=== PATIENT | male | born 1965 | race Caucasian/White ===

== ENCOUNTER → 2020-04-18 09:52 | Outpatient (CLI) | payer OTHER, SELFPAY ==
[2020-04-18 12:43] LABS: Coronavirus 19 IgG Antibody Negative (Negative); Coronavirus 19 IgM Antibody Negative (Negative)
== END ==
PROVIDERS: Visit Provider Internal Medicine Gastroenterology
DX: Z01.812 Encounter for preprocedural laboratory examination (principal); Z11.52 Encounter for screening for COVID-19; Z12.11 Encounter for screening for malignant neoplasm of colon
CPT/HCPCS: 36415; 86328

== ENCOUNTER 2020-04-20 11:42 | Day surgery (SDC) | payer OTHER, SELFPAY ==
[2020-04-20] VITALS (7 sets, daily range): BP systolic 137–167; BP diastolic 70–97; PULSE 54–70; RESP 16–18; TEMP 36.4–36.5; O2SAT 96–100; BMI 43.5
[2020-04-20 12:22] LABS: POC Glucose,Bedside 167 (70-110)
--- NOTE | 2020-04-20 13:05 | HMH.PROC ---
[facility] Procedure Note Procedure Note:: Colonoscopy Procedure Report: Colonoscopy with cold snare polypectomy Endoscopist: Jesus Ordonez II, MD Referring physician: SAMM Ng Date of Procedure: April 20, 2020 Equipment: Olympus 180 variable stiffness pediatric colonoscope Sedation: MAC sedation Indication: Mr. Bucio is a 54-year-old gentleman who is here for diagnostic colonoscopy secondary to a change in bowel habits. He does state that over the last couple of months he has had smaller caliber stools and a feeling of incomplete bowel evacuation. He did note some lower abdominal pain and discomfort intermittently. He reports no rectal bleeding or family history of colon cancer. He has lost 10 pounds over the last several months and states that this was intentional. His last colonoscopy was 5 to 6 years ago here and he believes that polyps were removed. Procedure: Prior to the procedure, a history and physical exam was performed, and patient's medications and allergies were reviewed. The risks, benefits and alternatives of the sedation and procedure were discussed with the patient. All questions were answered and informed consent was obtained. The patient was brought to the procedure room. Patient identification and proposed procedure were verified by the physician and the nurse. The patient was placed in a left lateral decubitus position and the scope was passed under direct vision. Throughout the procedure, the patient's blood pressure, pulse, and oxygen saturations were monitored continuously. The colonoscopy was accomplished without difficulty. The patient tolerated the procedure well. Findings: On digital rectal examination there was normal rectal tone. There were no external hemorrhoids. The prostate was 2+, soft, smooth and symmetric without nodules. The colonoscope was introduced through the anal canal to the rectum and advanced to the cecum. The ileocecal valve and appendiceal orifice were identified. The scope was advanced a short distance into the ileum which appeared grossly normal. The scope was then withdrawn into the colon. There were 3 colon polyps (ascending x1 (4 mm), descending x1 (5 mm) and rectum x1 (3 mm)) that were removed via cold snare polypectomy. There were scattered diverticuli throughout the descending and sigmoid colon (LEFT colon). The rectum itself was normal. Upon retroflexion within the rectum there were grade 1-2 internal hemorrhoids. The preparation was excellent throughout with Hart[place] Preparation Score of 9. The cecal time was 12 minutes. Impression: 1. Diminutive colonic polyps x3 2. Left-sided diverticulosis with evidence of acute/chronic sigmoid diverticulitis 3. Grade 1-2 internal hemorrhoids Plan: I will discuss the findings with patient and family. I will recommend dietary measures and bulk fiber supplementation (Konsyl daily). I will follow up the polyp histology and recommend repeat screening/surveillance colonoscopy again in 5 years based upon the pathology.
--- NOTE | 2020-04-20 14:22 | P.PN_ITS ---
[facility] Anesthesia Checklist - Structural Data Admitted From: Home Planned Operative Procedure/s: colonoscopy Consent for Planned Operative Procedure(s) Verified: Yes Verified Documents: Surgical Consent - Anesthesia Plan Anesthesia Risk discussed: Yes Anesthesia Plan: Verified ASA Class: II Anesthesia Type: General - Preoperative Comments Pre-Operative Comments: non [facility] History I have reviewed the patient's past medical history: Yes Medical History: Reports:: Diabetes Mellitus Type 2, Hyperlipidemia, Hypertension Denies:: Cancer, Diabetes Mellitus Type 1, MRSA, Seizures *Have you ever received a pneumonia vaccine?: No *Have you received a flu vaccine this season?: Yes Anesthesia experience/problems:: non Laterality Cases: Left: Arthroscopy Knee, Partial Knee Replacement Amputation: No Fractures: Yes - *Social History Smoking Status: Heavy tobacco smoker Tobacco Type: smokeless tobacco # Packs/Day (cigarettes): 2 Alcohol Intake: never Substance Use Type: denies use *Occupational Status:: employed Household Members: spouse *Travel in the last 8 weeks: None Family Hx:: No significant family history
== END 2020-04-20 13:50 | disposition home or self-care (01) ==
LOC: OUTP 11:45
PROVIDERS: PCP Nurse Practitioner Family; Visit Provider Internal Medicine Gastroenterology
PROC: 0DJD8ZZ Inspection of Lower Intestinal Tract, Via Natural or Artificial Opening Endoscopic (ICD-10-PCS; CPT 45378; principal; 2020-04-20 12:30)
DX: K63.5 Polyp of colon (principal); K57.30 Diverticulosis of large intestine without perforation or abscess without bleeding; K57.32 Diverticulitis of large intestine without perforation or abscess without bleeding; K64.0 First degree hemorrhoids; R63.4 Abnormal weight loss; E11.9 Type 2 diabetes mellitus without complications; I10 Essential (primary) hypertension; E78.5 Hyperlipidemia, unspecified; Z72.0 Tobacco use; Z79.82 Long term (current) use of aspirin; Z79.899 Other long term (current) drug therapy
CPT/HCPCS: 45385; 82962

== ENCOUNTER → 2021-05-05 09:24 | Outpatient (CLI) | payer OTHER, SELFPAY | PROVIDERS: PCP Nurse Practitioner Family; Visit Provider Nurse Practitioner | DX: U07.1 COVID-19 (principal) | CPT/HCPCS: C9803; U0003; U0005 ==

== ENCOUNTER 2021-05-05 09:35 | Emergency (ER) | payer OTHER, SELFPAY ==
[2021-05-05 10:20] VITALS: BP 166/86; PULSE 70; RESP 18; TEMP 37.4; O2SAT 92; BMI 44.9
--- NOTE | 2021-05-05 10:35 | XR_ITS ---
FINAL REPORT CLINICAL HISTORY: COUGH AND CONGESTION states he was dx with walking pneumonia a few weeks ago still not getting any better. no prior cxr at [facility]. FINDINGS: TWO VIEWS OF THE CHEST There is mild cardiomegaly. The mediastinum is unremarkable. There is patchy airspace opacity in both lungs. There is atelectasis at the left base. Findings are all consistent with acute pneumonia. There is no pneumothorax. IMPRESSION: Acute pneumonia. Recommend continued follow-up. Reviewed, Interpreted and Dictated by Bimal Davis MD Transcribed by Susi Nguyen Authenticated by Bimal Davis MD on 05/05/2021 11:35:09 AM [facility]
--- NOTE | 2021-05-05 10:57 | HMH.EDUTC ---
[facility] [place] Clinical Impression: Pneumonia Qualifiers: Pneumonia type: due to unspecified organism Laterality: unspecified laterality Lung location: unspecified part of lung Qualified Code(s): J18.9 - Pneumonia, unspecified organism Disposition: Home, Self-Care Condition on Discharge: Good Instructions: Pneumonia-Adult, Azithromycin, Cefdinir Additional Instructions: ? Start azithromycin today. and start Cefdinir tomorrow Be sure to complete entire prescription even if feeling better ? Monitor temp. Tylenol every 4 hours as needed and / or ibuprofen every 6 hours as needed ( As long as your primary care physician has told you that it ok to take both. For fever/aches/pains ER if no less than 101 despite Tylenol or Motrin ? Humidifier/vaporizer or hot steamy shower ? Inhaler every 4-6 hours as needed like we discussed. If unsure how to use it, ask pharmacist to demonstrate how. Should help open airways and improve cough, wheezing, and shortness of breath ? Mucinex Over the counter during the day for your cough and cough suppressant only at night. Be sure to drink lots of water. *Tessalon Perles will not cause drowsiness but use at bedtime to help stop cough so that you may get some rest. Follow up IMMEDIATELY for new or worsening of symptoms OR no noticeable improvement over the next 48-72 hours. 911 immediately for any life threatening symptoms such as chest pain or difficulty breathing Prescriptions: Benzonatate [Benzonatate 100mg cap] 100 mg PO Q8HP PRN #15 cap PRN Reason: Cough Transmission Status: Received by [facility] Cefdinir [Omnicef 300mg Capsule] 300 mg PO BID #20 cap Transmission Status: Received by [facility] Azithromycin [Z-Corbin 250mg Tab] 250 mg PO DIRECTED #6 tab Transmission Status: Received by [facility] Referrals: Candelaria Wolff [Primary Care Provider] - As needed Time of Disposition: 12:16 Medical Decision Making - Saúl Inquiry Pt receiving controlled substance: No Saúl was queried for this patient: No Vital Signs: 05/05/21 10:20 05/05/21 12:14 Temperature 99.3 F 99.3 F Temperature Source Oral Pulse Rate 70 Pulse Rate [Right Brachial] 70 Respiratory Rate 18 18 Blood Pressure 166/86 H Blood Pressure [Right Arm] 166/86 H Blood Pressure Mean [Right Arm] 112 Blood Pressure Source [Right Arm] Automatic Cuff Blood Pressure Position [Right Arm] Sitting 02 Sat by Pulse Oximetry 92 L Oxygen Delivery Method Room Air Orders (Tests/Meds): ED MEDICATIONS Discontinued Medications Generic Name Dose Route Start Last Admin Trade Name Johnathan PRN Reason Stop Dose Admin Albuterol/Ipratropium 3 ml 05/05/21 11:47 05/05/21 11:54 Ipratropium/Albuterol 3 Ml Neb IH 05/05/21 11:48 3 ml ONCE ONE Administration Ceftriaxone Sodium 1 gm 05/05/21 11:56 05/05/21 12:10 Ceftriaxone 1gm Vial IM 05/05/21 11:57 1 gm ONCE ONE Administration Lidocaine HCl 0 ml 05/05/21 11:56 05/05/21 12:10 Lidocaine 1% 5ml Pf Vial IM 05/05/21 11:57 2 ml ONCE ONE Administration Methylprednisolone Sodium Succinate 125 mg 05/05/21 11:56 05/05/21 12:10 Methylprednisolone Sod Succ 125mg Vial IM 05/05/21 11:57 125 mg ONCE ONE Administration - Radiology Data #1 Image(s): Chest Image Reviewed: Yes I reviewed the patient's radiology image [place] [facility] [place] - General Stated complaint: soa, cough, Time Seen by Provider: 05/05/21 10:57 Mode of Arrival: Ambulatory Source of Information: Patient Limitations: No Limitations Description of Symptoms (Recalled from Triage Doc. by RN): PATIENT C/O SOA AND COUGH X 1 MONTH. HE REPORTS HE WAS DIAGNOSED WITH WALKING PNEUMONIA BY PCP WITHIN THE LAST MONTH AND WAS GIVEN ANTIBIOTICS AND AN INHALER, BUT STATES HE DOES NOT FEEL LIKE HE IS GETTING BETTER. HIS CURRENTLY HAS COVID AND HE WAS TESTED THIS AM [facility] Symptoms (Recalled from RN notes): No Resp Symptom
[2021-05-05 12:14] VITALS: BP 166/86; PULSE 70; RESP 18; TEMP 37.4; O2SAT 95
== END 2021-05-05 12:24 | disposition home or self-care (01) ==
PROVIDERS: Emergency Provider Nurse Practitioner; PCP Nurse Practitioner Family
DX: U07.1 COVID-19 (principal); J12.82 Pneumonia due to coronavirus disease 2019; E11.9 Type 2 diabetes mellitus without complications; I10 Essential (primary) hypertension; E78.5 Hyperlipidemia, unspecified; F17.290 Nicotine dependence, other tobacco product, uncomplicated
CPT/HCPCS: 71046; 96372; 99202; G0463; J0696

== ENCOUNTER 2021-05-07 15:10 | Observation (INO) | payer OTHER, SELFPAY ==
[2021-05-07] VITALS (18 sets, daily range): BP systolic 122–163; BP diastolic 74–92; PULSE 62–81; RESP 18–30; TEMP 37.5–39.5; O2SAT 89–97; BMI 44.9; BMI 40.8
--- NOTE | 2021-05-07 15:20 | ECG_ITS ---
APPROVED REPORT Exam: Resting ECG HR:80 bpm ECG Measurements Heart Rate 80 AXES NJ 193 P -11 QRSd 89 QRS -15 QT 339 T -6 QTc 375 Conclusion SINUS RHYTHM MODERATE VOLTAGE CRITERIA FOR LVH, CONSIDER NORMAL VARIANT [MEETS CRITERIA IN ONE OF: R(aVL), S(V1), R(V5), R(V5/V6)+S(V1)] BORDERLINE ECG UNCONFIRMED REPORT Electronically signed by : Roger Evangelista MD 05/10/2021 17:31:00
--- NOTE | 2021-05-07 15:49 | XR_ITS ---
FINAL REPORT CLINICAL HISTORY: pt extremely soa, covid COMPARISON: May 05, 2021 FINDINGS: The heart size is normal. The mediastinum is normal. The lungs are underinflated. There are patchy bibasilar airspace infiltrates that are improved on the right and worse on the left. There are no pleural effusions. There is no pneumothorax. There is no osseous abnormality. IMPRESSION: Acute bibasilar pneumonia improving on the right and worsening on the left. Reviewed, Interpreted and Dictated by Bimal Davis MD Transcribed by Burak Cote Authenticated by Bimal Davis MD on 05/07/2021 04:26:20 PM [facility]
[2021-05-07 16:23] LABS: Chloride 97 mmol/L (98-107); Potassium 3.1 mmoL/L (3.5-5.1); Sodium 134 mmol/L (136-145)
[2021-05-07 16:26] LABS: Alanine Aminotransferase 39 U/L (12-78); Albumin/Globulin Ratio 1.2 (1.1-1.8); Alkaline Phosphatase 71 U/L (38-126); Anion Gap 9.1 mEq/L (5-15); Aspartate Amino Transferase 56 U/L (17-59); Bilirubin,Total 0.7 mg/dl (0.2-1.3); Blood Urea Nitrogen 12 mg/dl (9-20); Carbon Dioxide 31 mmol/L (22.0-30.0); Creatinine Clearance Estimated 157 mL/min (50-200); Estimated Glomerular Filt Rate 140 ml/min (>60); GFR (African American) 169 ML/MIN (>60); Globulin 3.3 g/dL (1.3-3.2); Glucose 171 mg/dl (74-100); Total Protein,Serum 7.3 g/dl (6.3-8.2)
[2021-05-07 16:42] LABS: Basophils # 0.1 K/mm3 (0-0.2); Basophils % 1.3 % (0.1-2.0); Hematocrit 46.2 % (42.0-52.0); Hemoglobin 15.2 g/dL (14.1-18.0); Lymphocytes # 0.6 K/mm3 (0.7-4.5); Lymphocytes % 10.1 % (10-50); Mean Corpuscular Hemoglobin 29.3 pg (27.0-31.2); Mean Corpuscular Volume 88.9 fl (80-94); Mean Platelet Volume 7.9 fl (7.4-10.4); Monocytes # 0.3 K/mm3 (0.1-1.0); Monocytes % 5.4 % (1.7-9.3); Neutrophils # 5.1 K/mm3 (1.8-7.8); Neutrophils % 83.1 % (37.0-80.0); Platelet Count 196 K/mm3 (142-424); Red Cell Distribution Width 13.7 % (11.5-17.5); White Blood Count 6.1 K/mm3 (4.8-10.8)
--- NOTE | 2021-05-07 17:00 | PC.NURSE ---
pt updated on plan of care
--- NOTE | 2021-05-07 17:27 | PC.NURSE ---
Patient ambulatory to restroom
--- NOTE | 2021-05-07 17:36 | PC.NURSE ---
Patient hooked back to monitor from restroom
--- NOTE | 2021-05-07 18:00 | PC.NURSE ---
pt updated on plan of care
[2021-05-07 18:07] LABS: Lactate Dehydrogenase 257 U/L (313-618)
[2021-05-07 18:11] LABS: C-Reactive Protein 42.9 mg/L (0-4)
[2021-05-07 18:13] LABS: D-Dimer 0.58 ug/mL (0.0-0.5)
[2021-05-07 18:29] LABS: Influenza A, PCR Not Detected (NotDetected); Influenza B, PCR Not Detected (NotDetected)
--- NOTE | 2021-05-07 18:32 | HMH.EDGENADL ---
ED Disposition Clinical Impression: Acute respiratory failure with hypoxia, Pneumonia due to COVID-19 virus Disposition: Admitted As Inpatient Condition on Discharge: Serious Referrals: Candelaria Wolff [Primary Care Provider] - - Critical Care Critical Care Time: Yes Attestation: On 05/07/21, the high probability of a clinically significant, sudden or life threatening deterioration of the following system(s) required my full and direct attention, intervention and personal management. The time I documented below is in addition to time spent performing reported procedures but includes the following listed in this critical care notation. Total Critical Care Time: 30 Vital system(s) involved:: Respiratory Failure My critical care processes included: Assessment & monitoring of V/S, Initial and Re-exams, Data Review/Interpretation, Coordinating Care, Medication Orders and management, Documentation Medical Decision Making - Saúl Inquiry Pt receiving controlled substance: No Vital Signs: 05/07/21 15:11 05/07/21 17:38 05/07/21 18:08 Temperature 103.1 F H 99.5 F Temperature Source Oral Oral Pulse Rate 69 Pulse Rate [Radial] 67 Respiratory Rate 30 H Blood Pressure 146/86 H Blood Pressure [Right Arm] 156/89 H Blood Pressure Mean [Right Arm] 111 Blood Pressure Position [Right Arm] Sitting 02 Sat by Pulse Oximetry 89 L 94 L Oxygen Delivery Method Room Air Nasal Cannula Oxygen Flow Rate (LPM) 2 - Lab Data Lab Results 05/07/21 16:00: WBC 6.1, RBC 5.20, Hgb 15.2, Hct 46.2, MCV 88.9, MCH 29.3, MCHC 33.0, RDW 13.7, Plt Count 196, MPV 7.9, Neut % (Auto) 83.1 H, Lymph % (Auto) 10.1, [place] % (Auto) 5.4, Eos % (Auto) 0.0 L, Baso % (Auto) 1.3, Neut # (Auto) 5.1, Lymph # (Auto) 0.6 L, [place] # (Auto) 0.3, Eos # (Auto) 0.0, Baso # (Auto) 0.1 05/07/21 16:00: Sodium 134 L, Potassium 3.1 L, Chloride 97 L, Carbon Dioxide 31 H, Anion Gap 9.1, BUN 12, Creatinine 0.60 L, Estimated Creat Clear 157, Estimated GFR 140, Est GFR ( Amer) 169, Glucose 171 H, Calcium 8.0 L, Total Bilirubin 0.7, AST 56, ALT 39, Alkaline Phosphatase 71, Total Protein 7.3, Albumin 4.0, Globulin 3.3 H, Albumin/Globulin Ratio 1.2 05/07/21 16:00: Lactate 1.0 05/07/21 16:00: Ferritin 103, Troponin I < 0.01, C-Reactive Protein 42.9 H 05/07/21 16:00: D-Dimer 0.58 H 05/07/21 16:00: Lactate Dehydrogenase 257 L 05/07/21 17:36: SARS-CoV-2 (PCR) Detected A, Influenza A Untype (PCR) Not detected, Influenza Type B (PCR) Not detected Result diagrams: 05/07/21 16:00 05/07/21 16:00 Orders (Tests/Meds): ED MEDICATIONS Generic Name Dose Route Start Last Admin Trade Name Jassiq PRN Reason Stop Dose Admin Dexamethasone Sodium Phosphate 6 mg 05/07/21 18:45 05/07/21 19:17 Dexamethasone 4mg/Ml 1ml Vial IV 06/06/21 18:44 6 mg DAILY TOBIN Administration Levofloxacin/Dextrose 750 mg in 150 mls @ 100 mls/hr 05/07/21 18:45 05/07/21 19:16 Levofloxacin 750mg/150ml Premix IV 05/21/21 18:44 100 mls/hr Q24H TOBIN Administration Discontinued Medications Generic Name Dose Route Start Last Admin Trade Name Jassiq PRN Reason Stop Dose Admin Acetaminophen 1,000 mg 05/07/21 15:50 05/07/21 16:05 Acetaminophen 500mg Tab PO 05/07/21 15:51 1,000 mg ONCE ONE Administration Iopamidol 70 ml 05/07/21 19:09 05/07/21 19:11 Iopamidol-370 (76%);100ml Bottle IV 05/07/21 19:10 70 ml ONCE ONE Administration Sodium Chloride 50 ml 05/07/21 19:09 05/07/21 19:10 0.9 % Sodium Chloride 50 Ml Vial IV 05/07/21 19:10 50 ml ONCE ONE Administration Sodium Chloride 10 ml 05/07/21 19:09 05/07/21 19:11 Sodium Chloride 0.9% 10ml Syr (Rad Only) IV 05/07/21 19:10 10 ml ONCE ONE Administration ORDERS Category Date Time Status Troponin I Q3H Lab 05/07/21 21:00 Ordered Troponin I Q3H Lab 05/08/21 00:00 Ordered Blood Culture Stat Micro 05/07/21 16:00 Received - Radiology Data #1 Image(s): Chest Image Reviewed: Ari
--- NOTE | 2021-05-07 18:42 | CT_ITS ---
PROCEDURE INFORMATION: Exam: CTA Chest With Contrast Exam date and time: 05/07/2021 6:42 PM Age: 55 years old Clinical indication: Shortness of breath; Additional info: Covid, SOA TECHNIQUE: Imaging protocol: Computed tomographic angiography of the chest with contrast. 3D rendering (Not supervised by radiologist): MIP and/or 3D reconstructed images were created by the technologist. Total images: 333 Radiation optimization: All CT scans at this facility use at least one of these dose optimization techniques: automated exposure control; mA and/or kV adjustment per patient size (includes targeted exams where dose is matched to clinical indication); or iterative reconstruction. Contrast material: ISOVUE 370; Contrast volume: 70 ml; Contrast route: INTRAVENOUS (IV); COMPARISON: CR XR CHEST PORTABLE 05/07/2021 3:58 PM FINDINGS: Pulmonary arteries: No large central pulmonary emboli were identified. Assessment of the small peripheral branches at multiple levels was nondiagnostic due to gross respiratory motion. Aorta: The aorta enhances appropriately without evidence of dissection or aneurysm. No mediastinal hematoma. Mild aortic ectasia/tortuosity. Thyroid: The visualized thyroid gland demonstrates no gross abnormality. Lungs: No acute tracheobronchial abnormalities. Multifocal bilateral alveolar opacities in all lobes suggestive of multifocal pneumonia. Commonly reported imaging features of COVID-19 pneumonia are present. Other processes such as influenza pneumonia and organizing pneumonia, as can be seen with drug toxicity and connective tissue disease, can cause a similar imaging pattern. No pulmonary mass lesions are identified. Pleural spaces: No pleural effusion. No pneumothorax. Heart: Mild cardiomegaly with right heart predominance. No pericardial effusion. Mediastinal space: The esophagus is largely contracted but demonstrates no gross abnormality. Lymph nodes: No supraclavicular or axillary adenopathy. No mediastinal or hilar adenopathy. Bones/joints: No acute osseous abnormalities are identified. Bridging ossification across multiple mid and lower thoracic spine segments suggesting diffuse idiopathic skeletal hyperostosis (DISH). Soft tissues: The soft tissues of the chest wall demonstrate no acute abnormality. Other findings: Visualized upper abdominal structures are unremarkable. IMPRESSION: 1. No large central pulmonary emboli were identified. Assessment of the small peripheral branches at multiple levels was nondiagnostic due to gross respiratory motion. 2. Multifocal bilateral alveolar opacities consistent with multifocal pneumonia. 3. Mild cardiomegaly with right heart predominance. 4. Additional nonemergent findings detailed above.
[2021-05-07 18:43] LABS: Ferritin 103 ng/ml (17.9-464)
--- NOTE | 2021-05-07 18:45 | PC.NURSE ---
RAD CALLED FOR CTA
[2021-05-07 18:55] LABS: Troponin I < 0.01 ng/ml (0.00-0.034)
--- NOTE | 2021-05-07 19:11 | PC.NURSE ---
Patient back from Radiology; hooked to monitor
--- NOTE | 2021-05-07 19:25 | PC.NURSE ---
PT AMBULATED UP TO BATHROOM O2 SATS DROPPPED TO 83% BUT QUICKLY RECOVERED BACK TO 90% O2 @ 3LPM REAPPLIED SATS BACK TO 96%
[2021-05-07 19:27] LABS: Coronavirus 19, PCR Detected (NotDetected)
--- NOTE | 2021-05-07 20:05 | PC.NURSE ---
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
--- NOTE | 2021-05-07 22:23 | PC.NURSE ---
patient up to floor via wheelchair @ this time
[2021-05-08] VITALS (7 sets, daily range): BP systolic 128–154; BP diastolic 62–84; PULSE 54–65; RESP 16–20; TEMP 36.4–36.7; O2SAT 92–96; BMI 40.7
[2021-05-08 00:32] LABS: POC Glucose,Bedside 220 (70-110)
--- NOTE | 2021-05-08 07:07 | HMH.HP ---
*Admission Date: 05/07/21 *Chief complaint: Covid, SOA *History of present illness: Mr. Bucio is a vaccinated (September 2020, Pfizer) 55yo M with diagnosis of Covid on 04/29. He presented to the ER due to worsening SOA, Cough, fever over the past week. C/o nausea, weakness, malaise, myalgias. Started on Antibiotics earlier this week by [facility] with no improvement. As he had progressive worsening shortness of breath, cough, difficulty sleeping, he presented to the ER for further evaluation. On arrival he was found to be dyspneic and have a fever. Started on supplemental oxygen. Medicine contacted for admission. On evaluation this morning, he is doing better and stable on 3 L oxygen. Complains of persistent cough. Loose stools but no elizabeth diarrhea. No nausea or vomiting. Of note, he has been vaccinated against Covid with the Pfizer vaccine in September 2020, he has not had a booster. He is a non-smoker. No chronic lung problems. He has hypertension and diabetes. [facility] History I have reviewed the patient's past medical history: Yes Medical History: Reports:: Diabetes Mellitus Type 1, Diabetes Mellitus Type 2, Hyperlipidemia, Hypertension Denies:: Cancer, MRSA, Seizures *Have you ever received a pneumonia vaccine?: No *Have you received a flu vaccine this season?: Yes Laterality Cases: Left: ACL Repair, Arthroscopy Knee Other Surgeries: Yes: Colonoscopy (2020) Amputation: No Fractures: Yes - *Social History Last grade of school completed: Some college Smoking Status: Never smoker Tobacco Type: smokeless tobacco # Packs/Day (cigarettes): 2 Alcohol Intake: never Substance Use Type: denies use *Occupational Status:: employed Housing: house Household Members: spouse, children *Travel in the last 8 weeks: None Family Hx:: No significant family history Review of Systems - Review of Systems Review of systems:: pertinent systems reviewed and negative unless documented below (14 point review of systems performed, pertinent positives and negatives as per HPI) - *Neurologic Reports weakness Meds Home Medications Medication Instructions Recorded Confirmed Type Amlodipine Besylate [Amlodipine 10 mg PO DAILY 04/20/20 05/07/21 History 10mg Tab] Aspirin [Aspirin 81mg EC Tab] 81 mg PO DAILY 04/20/20 05/07/21 History Cetirizine HCl [Zyrtec] 10 mg PO DAILY 04/20/20 05/07/21 History Losartan/Hydrochlorothiazide 1 each PO DAILY 04/20/20 05/07/21 History [Losartan-Hctz 100-25 mg Tab] Metformin HCl [Metformin 1000mg 1,000 mg PO DAILY 04/20/20 05/07/21 History Tablets] Rosuvastatin Calcium 20 mg PO HS 04/20/20 05/07/21 History glipiZIDE [Glipizide] 10 mg PO BID 04/20/20 05/08/21 History Benzonatate [Benzonatate 100mg 100 mg PO Q8HP PRN #15 cap 05/05/21 05/07/21 Rx cap] Azithromycin [Z-Corbin 250mg Tab] 250 mg PO DIRECTED 05/07/21 05/07/21 History Cefdinir [Omnicef 300mg Capsule] 300 mg PO BID 05/07/21 05/07/21 History Doxazosin Mesylate [Cardura 4mg 8 mg PO DAILY 05/08/21 05/08/21 History tablet] Allergies Allergy/AdvReac Type Severity Reaction Status Date / Time No Known Allergies Allergy Verified 04/20/20 12:11 Exam Vital signs and Labs for Last 24 Hours: Temp Pulse Resp BP Pulse Ox 97.9 F 57 L 20 148/82 H 96 05/08/21 04:00 05/08/21 04:00 05/08/21 04:00 05/08/21 04:00 05/08/21 04:00 Laboratory Results - last 24 hr 05/07/21 16:00: WBC 6.1, RBC 5.20, Hgb 15.2, Hct 46.2, MCV 88.9, MCH 29.3, MCHC 33.0, RDW 13.7, Plt Count 196, MPV 7.9, Neut % (Auto) 83.1 H, Lymph % (Auto) 10.1, [place] % (Auto) 5.4, Eos % (Auto) 0.0 L, Baso % (Auto) 1.3, Neut # (Auto) 5.1, Lymph # (Auto) 0.6 L, [place] # (Auto) 0.3, Eos # (Auto) 0.0, Baso # (Auto) 0.1 05/07/21 16:00: Sodium 134 L, Potassium 3.1 L, Chloride 97 L, Carbon Dioxide 31 H, Anion Gap 9.1, BUN 12, Creatinine 0.60 L, Estimated Creat Clear 157, Estimated GFR 140, Est GFR ( Amer) 169, Glucose 171 H, Calcium 8.0 L, Total Bilirubin 0.7, AST 56, ALT
[2021-05-08 07:18] LABS: Basophils % 0.5 % (0.1-2.0); Eosinophils % 0.1 % (0.1-12.0); Hematocrit 42.7 % (42.0-52.0); Lymphocytes # 0.5 K/mm3 (0.7-4.5); Lymphocytes % 11.6 % (10-50); Mean Corpuscular HGB Conc 32.9 g/dL (31.8-35.4); Mean Corpuscular Hemoglobin 29.2 pg (27.0-31.2); Mean Corpuscular Volume 88.9 fl (80-94); Mean Platelet Volume 8.6 fl (7.4-10.4); Monocytes # 0.4 K/mm3 (0.1-1.0); Monocytes % 8.1 % (1.7-9.3); Neutrophils # 3.5 K/mm3 (1.8-7.8); Neutrophils % 79.8 % (37.0-80.0); Platelet Count 181 K/mm3 (142-424); Red Cell Distribution Width 13.7 % (11.5-17.5); White Blood Count 4.4 K/mm3 (4.8-10.8)
[2021-05-08 07:56] LABS: Alanine Aminotransferase 33 U/L (12-78); Albumin Level 3.6 g/dl (3.5-5.0); Albumin/Globulin Ratio 1.2 (1.1-1.8); Alkaline Phosphatase 63 U/L (38-126); Anion Gap 9.3 mEq/L (5-15); Aspartate Amino Transferase 46 U/L (17-59); Bilirubin,Total 0.5 mg/dl (0.2-1.3); Blood Urea Nitrogen 11 mg/dl (9-20); Carbon Dioxide 31 mmol/L (22.0-30.0); Chloride 100 mmol/L (98-107); Creatinine Clearance Estimated 183 mL/min (50-200); Estimated Glomerular Filt Rate 173 ml/min (>60); GFR (African American) 209 ML/MIN (>60); Glucose 203 mg/dl (74-100); Magnesium 2.1 mg/dl (1.6-2.3); Potassium 3.3 mmoL/L (3.5-5.1); Sodium 137 mmol/L (136-145); Total Protein,Serum 6.6 g/dl (6.3-8.2)
--- NOTE | 2021-05-08 09:34 | HMH.PHAINT ---
VERIFIED PT HOME MEDS WITH FILL HX FROM PHARMACY
--- NOTE | 2021-05-08 14:21 | P.CONPHA_ITS ---
[facility] Pharmacy VTE Monitoring - Patient Demographics Admission date: 05/08/21 Report Date: 05/08/21 Time: 14:22 Allergies/Adverse Reactions: Patient Allergies No Known Allergies Allergy (Verified 04/20/20 12:11) Height: 1.85 m Weight: 139.525 kg Patient Problems: Current Active Problems Acute respiratory failure with hypoxia (Acute) Pneumonia due to COVID-19 virus (Acute) - VTE Risk Labs: VTE Related Lab Results Hgb 14.0 g/dL (14.1-18.0) L 05/08/21 05:47 Hct 42.7 % (42.0-52.0) 05/08/21 05:47 Plt Count 181 K/mm3 (142-424) 05/08/21 05:47 BUN 11 mg/dl (9-20) 05/08/21 05:47 Creatinine 0.50 mg/dl (0.66-1.25) L 05/08/21 05:47 Estimated Creat Clear 183 mL/min (50-200) 05/08/21 05:47 Was VTE Risk Assessment Performed: Yes VTE Score: 3 VTE Risk Level: Low Risk - Prophylaxis Location of Applied Device: Not Applicable Pharmacologic Type: Enoxaparin (LOVENOX 60 MG ORDERED)
[2021-05-08 20:20] LABS: POC Glucose,Bedside 161 (70-110)
[2021-05-08 20:20] LABS: POC Glucose,Bedside 137 (70-110)
[2021-05-08 21:32] LABS: POC Glucose,Bedside 177 (70-110)
[2021-05-08 21:32] LABS: POC Glucose,Bedside 153 (70-110)
[2021-05-09 04:00] VITALS: BP 145/87; PULSE 57; RESP 20; TEMP 36.4; O2SAT 96
[2021-05-09 05:00] VITALS: BMI 40.6
[2021-05-09 06:05] LABS: POC Glucose,Bedside 150 (70-110)
[2021-05-09 06:13] LABS: Basophils % 0.7 % (0.1-2.0); Eosinophils % 0.3 % (0.1-12.0); Hematocrit 42.7 % (42.0-52.0); Hemoglobin 13.9 g/dL (14.1-18.0); Lymphocytes # 0.7 K/mm3 (0.7-4.5); Lymphocytes % 20.6 % (10-50); Mean Corpuscular HGB Conc 32.6 g/dL (31.8-35.4); Mean Corpuscular Hemoglobin 29.1 pg (27.0-31.2); Mean Corpuscular Volume 89.3 fl (80-94); Mean Platelet Volume 7.8 fl (7.4-10.4); Monocytes # 0.3 K/mm3 (0.1-1.0); Monocytes % 8.3 % (1.7-9.3); Neutrophils # 2.3 K/mm3 (1.8-7.8); Platelet Count 178 K/mm3 (142-424); Red Blood Count 4.78 M/mm3 (4.60-6.20); Red Cell Distribution Width 13.6 % (11.5-17.5); White Blood Count 3.2 K/mm3 (4.8-10.8)
[2021-05-09 06:32] LABS: Alanine Aminotransferase 32 U/L (12-78); Albumin Level 3.5 g/dl (3.5-5.0); Albumin/Globulin Ratio 1.2 (1.1-1.8); Alkaline Phosphatase 65 U/L (38-126); Aspartate Amino Transferase 41 U/L (17-59); Bilirubin,Total 0.6 mg/dl (0.2-1.3); Blood Urea Nitrogen 10 mg/dl (9-20); Calcium 8.2 mg/dl (8.4-10.2); Carbon Dioxide 31 mmol/L (22.0-30.0); Chloride 102 mmol/L (98-107); Creatinine Clearance Estimated 183 mL/min (50-200); Estimated Glomerular Filt Rate 173 ml/min (>60); GFR (African American) 209 ML/MIN (>60); Globulin 2.9 g/dL (1.3-3.2); Sodium 139 mmol/L (136-145); Total Protein,Serum 6.4 g/dl (6.3-8.2)
[2021-05-09 06:44] LABS: Glucose 151 mg/dl (74-100)
--- NOTE | 2021-05-09 06:57 | PC.NURSE ---
Aurelio from lab called with a critical potassium of 3.0 on this patient at 0644 Name, & result verified x2. notified and no new orders.
[2021-05-09 07:24] VITALS: BMI 40.6
[2021-05-09 08:00] VITALS: BP 146/88; PULSE 60; RESP 16; TEMP 36.8; O2SAT 95
--- NOTE | 2021-05-09 10:40 | HMH.DCSUM ---
General - General Admission date:: 05/07/21 Discharge date: 05/09/21 HPI HPI: Mr. Bucio is a vaccinated (September 2020, [employer]) 55yo M with diagnosis of Covid on 04/29. He presented to the ER due to worsening SOA, Cough, fever over the past week. C/o nausea, weakness, malaise, myalgias. Started on Antibiotics earlier this week by [facility] with no improvement. As he had progressive worsening shortness of breath, cough, difficulty sleeping, he presented to the ER for further evaluation. On arrival he was found to be dyspneic and have a fever. Started on supplemental oxygen. Medicine contacted for admission. On evaluation this morning, he is doing better and stable on 3 L oxygen. Complains of persistent cough. Loose stools but no elizabeth diarrhea. No nausea or vomiting. Of note, he has been vaccinated against Covid with the [employer] vaccine in September 2020, he has not had a booster. He is a non-smoker. No chronic lung problems. He has hypertension and diabetes. Hospital Course Hospital Course: 55-year-old gentleman vaccinated for Covid but not boosted who presents with acute hypoxemic respiratory failure secondary to COVID-19 pneumonia. Stable on 2L NC this morning, required as much as 4L during admission. Cough somewhat better. Remains afebrile and feeling more energetic. Ambulating independently, eating well. Problems addressed as follows: Acute hypoxemic respiratory failure secondary to COVID-19 pneumonia -Initiated on Covid bundle. Tolerated antibiotics, steroids, antiviral medication. -Given improvement in stabilization and oxygen requirement, will discharge home on vitamins, finish 7 days of antibiotics with Levaquin, continue steroids. -Counseled on new medications and possible side effects. -Continues to require oxygen, will establish for home oxygen. Recommend wearing continuously for the next 1 to 2 weeks and weaning thereafter at the discretion and advisement of his PCP. -Recommend following up in a week for evaluation by his PCP to make sure he is doing better and resolving - Incentive spirometry and inhalers during admission. Diabetes: Initiated on Sliding scale insulin with fingersticks before meals and at bedtime. Transition back to home regimen for diabetes Hypertension, well controlled. Continued home medications BPH: continued doxazosin Patient tolerated treatment well. Is on stable oxygen requirement. Meeting criteria for discharge home. Continue to convalesce at home, recommend not returning to work for at least a week to allow his body to rest and heal from current illness. Follow-up with PCP in 1 week. Examined on day of discharge. Objective Vital signs: Temp Pulse Resp BP Pulse Ox 98.2 F 60 16 146/88 H 95 05/09/21 08:00 05/09/21 08:00 05/09/21 08:00 05/09/21 08:00 05/09/21 08:00 Narrative: - Constitutional NAD on 2L NC, morbidly obese - *Routine HEENT Exam Head: Present: normocephalic Eye: Present: EOMI, PERRL ENT: Present: mucous membranes moist - *Routine Neck Exam Present: supple. Absent: lymphadenopathy - *Routine Respiratory Exam Present: crackles (In bilateral bases), Good air movement bilaterally - *Routine Cardiovascular Exam Present: RRR - *Routine Abdominal Exam Present: soft, normoactive bowel sounds. Absent: tenderness - *Routine Extremities Exam Absent: cyanosis, clubbing, edema - *Routine Skin Exam Present: warm. Absent: rash - *Routine Neurological Exam Present: alert, oriented X3 Results Labs on day of discharge: Labs from last 24 hours 05/09/21 05/09/21 05/09/21 05:58 05:44 05:44 WBC 3.2 L D RBC 4.78 Hgb 13.9 L Hct 42.7 MCV 89.3 MCH 29.1 MCHC 32.6 RDW 13.6 Plt Count 178 MPV 7.8 Neut % (Auto) 70.0 Lymph % (Auto) 20.6 Carbon % (Auto) 8.3 Eos % (Auto) 0.3 Baso % (Auto) 0.7 Neut # (Auto) 2.3 Lymph # (Auto) 0.7 Carbon # (Auto) 0.3 Eos # (Auto) 0.0 Bas
[2021-05-09 10:46] VITALS: O2SAT 88
[2021-05-09 11:50] VITALS: BP 168/84; PULSE 60; RESP 18; TEMP 36.7; O2SAT 94
[2021-05-09 13:13] LABS: POC Glucose,Bedside 317 (70-110)
--- NOTE | 2021-05-09 14:04 | PC.NURSE ---
pt is being discharged from the unit. Took all of his belongings with him and voiced understanding of all discahrge education and follow up appts. Saline lock discontinued. o2 in use from [facility].
== END 2021-05-09 14:15 | disposition home or self-care (01) ==
LOC: ER 18:50 → 2ND 20:56
PROVIDERS: Admitting Provider Internal Medicine Adolescent Medicine; Emergency Provider Emergency Medicine; PCP Nurse Practitioner Family; Visit Provider Internal Medicine Adolescent Medicine
DX: U07.1 COVID-19 (principal); E11.9 Type 2 diabetes mellitus without complications; Z79.84 Long term (current) use of oral hypoglycemic drugs; I10 Essential (primary) hypertension; E78.5 Hyperlipidemia, unspecified; J12.82 Pneumonia due to coronavirus disease 2019; J96.01 Acute respiratory failure with hypoxia; E66.9 Obesity, unspecified; Z68.41 Body mass index [BMI] 40.0-44.9, adult; N40.0 Benign prostatic hyperplasia without lower urinary tract symptoms
CPT/HCPCS: 36415; 71045; 71275; 80053; 82728; 82962; 83605; 83615; 83735; 84484; 85025; 85378; 86140; 87040; 87070; 87205; 93005; 96365; 96375; 99284; C9803; G0378; J1956; Q9967; U0003; U0005

== ENCOUNTER 2024-04-02 18:39 | Emergency (ER) | payer OTHER, SELFPAY ==
[2024-04-02 19:58] VITALS: BP 134/67; PULSE 79; RESP 18; TEMP 37.2; O2SAT 98; BMI 40.6
--- NOTE | 2024-04-02 20:08 | EXP.UTC ---
Discharge Plan Disposition Patient Disposition: Home, Self-Care Condition: Good Prescriptions Prescriptions: New fluconazole [Diflucan] 100 mg tablet 100 mg PO DAILY 3 Days Qty: 3 0RF nystatin 100,000 unit/gram cream 1 applic topical BID 7 Days Qty: 15 2RF No Action benzonatate 100 MG capsule 100 mg PO Q8HP PRN (Reason: Cough) Qty: 15 0RF Rx Instructions: First dose on 05/05/21 doxazosin 4 MG tablet 8 mg PO DAILY ascorbic acid (vitamin C) 500 MG tablet 500 mg PO QID 0RF ergocalciferol (vitamin D2) 50,000 UNIT capsule 50,000 unit PO WEEKLY 28 Days Qty: 4 0RF levofloxacin 750 MG tablet 750 mg PO 1100 4 Days Qty: 4 0RF dexamethasone 4 MG tablet 4 mg PO DAILY 3 Days Qty: 3 0RF glipizide 10 MG tablet 10 mg PO BID aspirin 81 MG tablet,delayed release (DR/EC) 81 mg PO DAILY losartan-hydrochlorothiazide 1 EACH tablet 1 each PO DAILY amlodipine 10 MG tablet 10 mg PO DAILY metformin 1,000 MG tablet 1,000 mg PO DAILY rosuvastatin 20 MG tablet 20 mg PO HS cetirizine 10 MG capsule 10 mg PO DAILY Referrals Follow up/Referrals: Candelaria Wolff [Primary Care Provider] - See instructions Activity Restrictions/Add. Instructions Additional Instructions/Restrictions: Keep the area as clean and dry as you can. Take tylenol for pain. Take the medications as directed. Apply the topical medication as directed. Follow up with your regular doctor. GO TO THE ER FOR ANY WORSENING SYMPTOMS Clinical Impressions Clinical Impression: Candidal balanitis Instructions Patient Instructions: SPARKLE for Balanitis, Balanitis Print Language Print Language: Danish Discharge ED Provider: Saul Cortez [facility] [place] General Stated complaint: genital pain Mode of Arrival: Ambulatory Source of Information: Patient Time Seen by Provider: 04/02/24 20:08 Description of Symptoms (Recalled from Triage Doc. by RN): SWOLLEN GENTIAL AREA, HARD TO URINATE, RED HEENT Symptoms (Recalled from RN notes): No Resp Symptoms (Recalled from RN notes): No Skin Symptoms (Recalled from RN notes): No MS Symptoms (Recalled from RN notes): No Functional Status (Recalled from RN notes): wnl Related Data Home Medications ?Medication ?Instructions ?Recorded ?Confirmed amlodipine 10 mg tablet 10 mg PO DAILY High blood pressure 04/20/20 05/07/21 aspirin 81 mg tablet,delayed 81 mg PO DAILY heart health 04/20/20 05/07/21 release cetirizine 10 mg capsule 10 mg PO DAILY Allergy symptoms 04/20/20 05/07/21 glipizide 10 mg tablet 10 mg PO BID Diabetes 04/20/20 05/08/21 losartan 100 1 each PO DAILY High blood pressure 04/20/20 05/07/21 mg-hydrochlorothiazide 25 mg tablet metformin 1,000 mg tablet 1,000 mg PO DAILY Diabetes 04/20/20 05/07/21 rosuvastatin 20 mg tablet 20 mg PO HS High cholesterol 04/20/20 05/07/21 doxazosin 4 mg tablet 8 mg PO DAILY urinary retention 05/08/21 05/08/21 Previous Rx's ?Medication ?Instructions ?Recorded benzonatate 100 mg capsule 100 mg PO Q8HP PRN Cough #15 caps 05/05/21 ascorbic acid (vitamin C) 500 mg 500 mg PO QID 05/09/21 tablet dexamethasone 4 mg tablet 4 mg PO DAILY 3 days #3 tabs 05/09/21 ergocalciferol (vitamin D2) 1,250 50,000 unit PO WEEKLY 28 days #4 05/09/21 mcg (50,000 unit) capsule caps levofloxacin 750 mg tablet 750 mg PO 1100 4 days #4 tabs 05/09/21 fluconazole 100 mg tablet 100 mg PO DAILY 3 days #3 tabs 04/02/24 (Diflucan) nystatin 100,000 unit/gram topical 1 applic topical BID 7 days #15 04/02/24 cream grams Allergies Allergy/AdvReac Type Severity Reaction Status Date / Time No Known Allergies Allergy Verified 04/20/20 12:11 Worker's Comp Is this a Worker's Comp case?: No [facility] Disclaimer: The information contained in this section may have been updated after the patient was seen, as this information can be updated by other users. Social History Smoking Status: Current every day smoker tobacco type: smokeless tobacco second hand exposure: No alcohol intake: never substance use type: denies use current occupational status: employed Travel in the last 8 weeks: None household members: spouse and children housing: house current occupational exposures/hazards: Yes caffeine: Yes Have you lived/traveled outside [place] in past 30 days?: No Contact w/someone who lives/traveled outside [place] past 30 days?: No Exposure to someone with infectious disease in past 14 days?: No Do you have a fever (greater than 100.4 F or 38 C)?: No Have you tested positive for COVID-19: No Exposed to someone with COVID-19 in past 14 days?: No Do you have a sore throat?: No Do you have a cough?: No Do you have any weakness?: No Do you have any diarrhea?: No Are you experiencing any unusual bleeding?: No Do you have any muscle aches/pain?: No Do you have any abdominal pain?: No Are you experiencing loss of taste or smell?: No ROS Obtained: Yes All systems reviewed & no additional complaints except as documented Constitutional Constitutional: Denies chills and Denies fever(s) Eyes Eyes: Denies eye discharge ENT Ears, Nose, Mouth, and Throat: Denies dizziness, Denies otalgia and Denies sore throat Cardiovascular Cardiovascular: Denies chest pain Respiratory Respiratory: Denies shortness of breath, Denies chest congestion, Denies cough, Denies stridor and Denies wheezing Gastrointestinal Gastrointestingal: Denies nausea or vomiting Genitourinary Male Genitourinary: Reports as per HPI Musculoskeletal Musculoskeletal: Reports system reviewed and no additional complaints, except as documented and Denies arthralgias Integumentary/Breasts Skin/Breast: Denies rash Neurologic Neurologic: Denies dizziness and Denies paresthesias Allergic/Immunologic Allergic/Immunologic: Denies wheezing Physical Exam General General appearance: alert and in no apparent distress Head Head exam: atraumatic, normocephalic and normal inspection Eye Eye exam: Present normal appearance, PERRL and EOMI ENT ENT exam: Present normal exam, normal oropharynx, mucous membranes moist, TM's normal bilaterally and normal external ear exam Neck Neck exam: Present normal inspection, full ROM and trachea midline; Absent meningismus or lymphadenopathy Chest Chest inspection: Present normal inspection and symmetric chest wall rise; Absent tenderness Respiratory Respiratory exam: Present normal lung sounds bilaterally; Absent respiratory distress Cardiovascular Cardiovascular exam: Present regular rate and normal rhythm; Absent JVD Abdominal Exam Abdominal exam: Present soft and normal bowel sounds; Absent distention, tenderness or guarding exam: Absent scrotal swelling or circumcised Expanded Exam exam: Present erythema and balanitis Extremities Exam Extremities exam: Present normal inspection, full ROM and normal capillary refill; Absent calf tenderness Back Exam Back exam: Present normal inspection; Absent tenderness Neurological Exam Neurological exam: Present alert and oriented X3 Psychiatric Psychiatric exam: Present normal affect and normal mood Skin Skin exam: Present warm, dry, intact and normal color Lymphatic Lymphatic Findings: no adenopathy Medical Decision Making Medical Records Medical records reviewed: No I reviewed the patient's medical records. Screening: Per USPSTF and CDC recommendations, given the prevalence of disease in our region, it is our hospital?s policy to screen for HIV and viral Hepatitis for all patients aged 18 and over and those with ongoing risk factors. Saúl Inquiry Pt receiving controlled substance: No Vital Signs: 04/02/24 19:58 Temperature 99.0 F Temperature Source Oral Pulse Rate [Left Radial] 79 Respiratory Rate 18 Blood Pressure [Left Arm] 134/67 Blood Pressure Mean [Left Arm] 89 02 Sat by Pulse Oximetry 98 Orders (Tests/Meds): ED MEDICATIONS Generic Name Dose Route Start Last Admin Trade Name Freq PRN Reason Stop Dose Admin Fluconazole 200 mg 04/02/24 20:15 Fluconazole 200mg Tablet PO 04/09/24 20:14 DAILY TOBIN
[2024-04-02] MEDS: FLUCONAZOLE 200MG TABLET 200 MG PO (20:11)
[2024-04-02 20:13] VITALS: BP 134/67; PULSE 79; RESP 18; TEMP 37.2
== END 2024-04-02 20:42 | disposition home or self-care (01) ==
PROVIDERS: Emergency Provider Nurse Practitioner Family; PCP Nurse Practitioner Family
DX: B37.42 Candidal balanitis (principal); N50.9 Disorder of male genital organs, unspecified; R33.9 Retention of urine, unspecified
CPT/HCPCS: 99212; G0381

== ENCOUNTER 2024-04-04 11:51 | Emergency (ER) | payer OTHER, SELFPAY ==
[2024-04-04] VITALS (56 sets, daily range): BP systolic 72–122; BP diastolic 36–75; PULSE 47–69; RESP 15–24; TEMP 36.8–36.9; O2SAT 90–100; BMI 41.3
--- NOTE | 2024-04-04 12:26 | HMH.EDGENADL ---
Discharge Plan Disposition Patient Disposition: Xfer Short-Term Hosp Condition: Serious Prescriptions Prescriptions: No Action benzonatate 100 MG capsule 100 mg PO Q8HP PRN (Reason: Cough) Qty: 15 0RF Rx Instructions: First dose on 05/05/21 doxazosin 4 MG tablet 8 mg PO DAILY ascorbic acid (vitamin C) 500 MG tablet 500 mg PO QID 0RF ergocalciferol (vitamin D2) 50,000 UNIT capsule 50,000 unit PO WEEKLY 28 Days Qty: 4 0RF levofloxacin 750 MG tablet 750 mg PO 1100 4 Days Qty: 4 0RF dexamethasone 4 MG tablet 4 mg PO DAILY 3 Days Qty: 3 0RF glipizide 10 MG tablet 10 mg PO BID aspirin 81 MG tablet,delayed release (DR/EC) 81 mg PO DAILY losartan-hydrochlorothiazide 1 EACH tablet 1 each PO DAILY amlodipine 10 MG tablet 10 mg PO DAILY metformin 1,000 MG tablet 1,000 mg PO DAILY rosuvastatin 20 MG tablet 20 mg PO HS cetirizine 10 MG capsule 10 mg PO DAILY fluconazole [Diflucan] 100 mg tablet 100 mg PO DAILY 3 Days Qty: 3 0RF nystatin 100,000 unit/gram cream 1 applic topical BID 7 Days Qty: 15 2RF Referrals Follow up/Referrals: Candelaria Wolff [Primary Care Provider] - See instructions Activity Restrictions/Add. Instructions Additional Instructions/Restrictions: To the [facility] emergency department care of Dr. Abarca Clinical Impressions Clinical Impression: Panniculitis, Acute hypokalemia, Shock, Acute balanitis due to infection Stand Alone Forms Stand Alone Forms: Transfer Record - ED Instructions Patient Instructions: DI for Urinary Tract Infection (UTI), DI for Urinary Tract Infection in Children Print Language Print Language: Slovak Discharge ED Provider: Jelani Hammond General Adult HPI <LOLA Keene - Last Filed: 04/04/24 18:16> General Chief complaint: Urogenital-Male Stated complaint: penis is inward Time Seen by Provider: 04/04/24 12:26 History of Present Illness HPI narrative: Patient presents for evaluation of cellulitis around his lower abdomen. Patient reports that he has had 1 week history of increasing swelling and pain around his penis more specifically the pannus around it. He saw his PCP this week and was prescribed antifungals but was unable to pick them up due to the hol. Normally he is able to deliver his penis 3 to the pannus to urinate however he has been able to do so for more than a week. He reports pain but no fever chills hemoptysis hematochezia melena nausea vomiting diarrhea. He is still able to pee and does not have any urinary frequency but it van the skin when he does. He is still having normal bowel movements no nausea vomiting diarrhea. He is an [id number] type II diabetic. Related Data Home Medications ?Medication ?Instructions ?Recorded ?Confirmed amlodipine 10 mg tablet 10 mg PO DAILY High blood pressure 04/20/20 05/07/21 aspirin 81 mg tablet,delayed 81 mg PO DAILY heart health 04/20/20 05/07/21 release cetirizine 10 mg capsule 10 mg PO DAILY Allergy symptoms 04/20/20 05/07/21 glipizide 10 mg tablet 10 mg PO BID Diabetes 04/20/20 05/08/21 losartan 100 1 each PO DAILY High blood pressure 04/20/20 05/07/21 mg-hydrochlorothiazide 25 mg tablet metformin 1,000 mg tablet 1,000 mg PO DAILY Diabetes 04/20/20 05/07/21 rosuvastatin 20 mg tablet 20 mg PO HS High cholesterol 04/20/20 05/07/21 doxazosin 4 mg tablet 8 mg PO DAILY urinary retention 05/08/21 05/08/21 Previous Rx's ?Medication ?Instructions ?Recorded benzonatate 100 mg capsule 100 mg PO Q8HP PRN Cough #15 caps 05/05/21 ascorbic acid (vitamin C) 500 mg 500 mg PO QID 05/09/21 tablet dexamethasone 4 mg tablet 4 mg PO DAILY 3 days #3 tabs 05/09/21 ergocalciferol (vitamin D2) 1,250 50,000 unit PO WEEKLY 28 days #4 05/09/21 mcg (50,000 unit) capsule caps levofloxacin 750 mg tablet 750 mg PO 1100 4 days #4 tabs 05/09/21 fluconazole 100 mg tablet 100 mg PO DAILY 3 days #3 tabs 04/02/24 (Diflucan) nystatin 100,000 unit/gram topical 1 applic topical BID 7 days #15 04/02/24 cream grams Allergies Allergy/AdvReac Type Severity Reaction Status Date / Time No Known Allergies Allergy Verified 04/20/20 12:11 [facility] <LOLA Keene - Last Filed: 04/04/24 18:16> [facility] Disclaimer: The information contained in this section may have been updated after the patient was seen, as this information can be updated by other users. Social History Smoking Status: Current every day smoker tobacco type: smokeless tobacco second hand exposure: No alcohol intake: never substance use type: denies use current occupational status: employed Travel in the last 8 weeks: None household members: spouse and children housing: house current occupational exposures/hazards: Yes caffeine: Yes Have you lived/traveled outside [place] in past 30 days?: No Contact w/someone who lives/traveled outside US past 30 days?: No Exposure to someone with infectious disease in past 14 days?: No Do you have a fever (greater than 100.4 F or 38 C)?: No Have you tested positive for COVID-19: No Exposed to someone with COVID-19 in past 14 days?: No Do you have a sore throat?: No Do you have a cough?: No Do you have any weakness?: No Do you have any diarrhea?: No Are you experiencing any unusual bleeding?: No Do you have any muscle aches/pain?: No Do you have any abdominal pain?: No Are you experiencing loss of taste or smell?: No Other Medical History Have you received the Flu Vaccine for this season: No Have you received the Pneumonia Vaccine: No <LOLA Keene - Last Filed: 04/04/24 18:16> ROS Obtained: Yes Systems reviewed as appropriate & no additional complaints except as documented Physical Exam <LOLA Keene - Last Filed: 04/04/24 18:16> General General appearance: alert and in no apparent distress Respiratory Respiratory exam: Present normal lung sounds bilaterally Cardiovascular Cardiovascular exam: Present regular rate Neurological Exam Neurological exam: Present alert and oriented X3 Medical Decision Making <LOLA Keene - Last Filed: 04/04/24 18:16> Medical Records Medical records reviewed: Yes I reviewed the patient's medical records. Screening: Per USPSTF and CDC recommendations, given the prevalence of disease in our region, it is our hospital?s policy to screen for HIV and viral Hepatitis for all patients aged 18 and over and those with ongoing risk factors. Saúl Inquiry Pt receiving controlled substance: No Vital Signs: 04/04/24 12:00 04/04/24 13:45 04/04/24 13:50 Temperature 98.3 F Temperature Source Oral Pulse Rate 62 56 L Pulse Rate [Left Radial] 69 Respiratory Rate 20 Blood Pressure 92/50 L 91/44 L Blood Pressure [Right Arm] 122/68 Blood Pressure Mean Blood Pressure Mean [Right Arm] 86 Blood Pressure Position [Right Arm] Sitting 02 Sat by Pulse Oximetry 96 94 L 94 L Oxygen Delivery Method Room Air Room Air Room Air 04/04/24 13:55 04/04/24 14:00 04/04/24 14:05 Temperature Temperature Source Pulse Rate 57 L 61 47 L Pulse Rate [Left Radial] Respiratory Rate Blood Pressure 88/53 L 96/50 L 85/52 L Blood Pressure [Right Arm] Blood Pressure Mean Blood Pressure Mean [Right Arm] Blood Pressure Position [Right Arm] 02 Sat by Pulse Oximetry 90 L 94 L 93 L Oxygen Delivery Method Room Air Room Air Room Air 04/04/24 14:20 04/04/24 14:26 04/04/24 14:31 Temperature Temperature Source Pulse Rate 58 L 58 L 60 Pulse Rate [Left Radial] Respiratory Rate Blood Pressure 97/53 L 91/47 L 85/36 L Blood Pressure [Right Arm] Blood Pressure Mean 69 61 Blood Pressure Mean [Right Arm] Blood Pressure Position [Right Arm] 02 Sat by Pulse Oximetry 93 L 93 L 93 L Oxygen Delivery Method 04/04/24 14:35 04/04/24 14:40 04/04/24 14:45 Temperature Temperature Source Pulse Rate 63 48 L 51 L Pulse Rate [Left Radial] Respiratory Rate Blood Pressure 87/48 L 82/45 L 83/43 L Blood Pressure [Right Arm] Blood Pressure Mean Blood Pressure Mean [Right Arm] Blood Pressure Position [Right Arm] 02 Sat by Pulse Oximetry 92 L 96 90 L Oxygen Delivery Method 04/04/24 14:50 04/04/24 14:55 04/04/24 15:00 Temperature Temperature Source Pulse Rate 49 L 57 L 55 L Pulse Rate [Left Radial] Respiratory Rate Blood Pressure 82/41 L 72/44 L 84/44 L Blood Pressure [Right Arm] Blood Pressure Mean Blood Pressure Mean [Right Arm] Blood Pressure Position [Right Arm] 02 Sat by Pulse Oximetry 92 L 94 L 92 L Oxygen Delivery Method 04/04/24 15:02 04/04/24 15:05 04/04/24 15:10 Temperature Temperature Source Pulse Rate 55 L 55 L 54 L Pulse Rate [Left Radial] Respiratory Rate 15 21 Blood Pressure 79/47 L 89/55 L 94/56 L Blood Pressure [Right Arm] Blood Pressure Mean Blood Pressure Mean [Right Arm] Blood Pressure Position [Right Arm] 02 Sat by Pulse Oximetry 94 L 94 L 94 L Oxygen Delivery Method 04/04/24 15:16 04/04/24 15:20 04/04/24 15:25 Temperature Temperature Source Pulse Rate 54 L 53 L 50 L Pulse Rate [Left Radial] Respiratory Rate 17 21 21 Blood Pressure 87/57 L 79/47 L 87/48 L Blood Pressure [Right Arm] Blood Pressure Mean Blood Pressure Mean [Right Arm] Blood Pressure Position [Right Arm] 02 Sat by Pulse Oximetry 95 95 96 Oxygen Delivery Method Room Air Room Air Room Air 04/04/24 15:30 04/04/24 15:35 04/04/24 15:40 Temperature Temperature Source Pulse Rate 52 L 56 L 57 L Pulse Rate [Left Radial] Respiratory Rate 17 20 24 Blood Pressure 88/42 L 86/49 L 84/45 L Blood Pressure [Right Arm] Blood Pressure Mean Blood Pressure Mean [Right Arm] Blood Pressure Position [Right Arm] 02 Sat by Pulse Oximetry 94 L 94 L 98 Oxygen Delivery Method Room Air Room Air Room Air 04/04/24 15:45 04/04/24 15:50 04/04/24 15:55 Temperature Temperature Source Pulse Rate 48 L 54 L 52 L Pulse Rate [Left Radial] Respiratory Rate 21 21 22 Blood Pressure 92/54 L 93/59 L 98/60 L Blood Pressure [Right Arm] Blood Pressure Mean Blood Pressure Mean [Right Arm] Blood Pressure Position [Right Arm] 02 Sat by Pulse Oximetry 95 96 97 Oxygen Delivery Method Room Air Room Air Room Air 04/04/24 16:00 04/04/24 16:05 04/04/24 16:10 Temperature Temperature Source Pulse Rate 47 L 52 L 54 L Pulse Rate [Left Radial] Respiratory Rate 20 21 18 Blood Pressure 86/49 L 88/53 L 82/53 L Blood Pressure [Right Arm] Blood Pressure Mean Blood Pressure Mean [Right Arm] Blood Pressure Position [Right Arm] 02 Sat by Pulse Oximetry 97 97 97 Oxygen Delivery Method Room Air Room Air Room Air 04/04/24 16:15 04/04/24 16:20 04/04/24 16:25 Temperature Temperature Source Pulse Rate 51 L 55 L 49 L Pulse Rate [Left Radial] Respiratory Rate 20 22 21 Blood Pressure 88/55 L 92/48 L 83/51 L Blood Pressure [Right Arm] Blood Pressure Mean 57 Blood Pressure Mean [Right Arm] Blood Pressure Position [Right Arm] 02 Sat by Pulse Oximetry 96 96 96 Oxygen Delivery Method Room Air Room Air 04/04/24 16:30 04/04/24 16:35 04/04/24 16:40 Temperature Temperature Source Pulse Rate 47 L 51 L 51 L Pulse Rate [Left Radial] Respiratory Rate 23 21 21 Blood Pressure 82/50 L 83/48 L 90/57 L Blood Pressure [Right Arm] Blood Pressure Mean 58 56 66 Blood Pressure Mean [Right Arm] Blood Pressure Position [Right Arm] 02 Sat by Pulse Oximetry 95 94 L 94 L Oxygen Delivery Method 04/04/24 16:45 04/04/24 16:50 04/04/24 16:55 Temperature Temperature Source Pulse Rate 51 L Pulse Rate [Left Radial] Respiratory Rate 21 Blood Pressure 96/62 L 91/59 L 91/59 L Blood Pressure [Right Arm] Blood Pressure Mean 70 69 67 Blood Pressure Mean [Right Arm] Blood Pressure Position [Right Arm] 02 Sat by Pulse Oximetry 94 L Oxygen Delivery Method 04/04/24 17:00 04/04/24 17:10 04/04/24 17:15 Temperature Temperature Source Pulse Rate 48 L 54 L 54 L Pulse Rate [Left Radial] Respiratory Rate 24 21 17 Blood Pressure 79/47 L 81/53 L 89/55 L Blood Pressure [Right Arm] Blood Pressure Mean 57 61 63 Blood Pressure Mean [Right Arm] Blood Pressure Position [Right Arm] 02 Sat by Pulse Oximetry 95 95 96 Oxygen Delivery Method 04/04/24 17:20 04/04/24 17:25 04/04/24 17:30 Temperature Temperature Source Pulse Rate 50 L 49 L 49 L Pulse Rate [Left Radial] Respiratory Rate 19 19 19 Blood Pressure 88/56 L 81/55 L 84/49 L Blood Pressure [Right Arm] Blood Pressure Mean 63 61 55 Blood Pressure Mean [Right Arm] Blood Pressure Position [Right Arm] 02 Sat by Pulse Oximetry 95 98 96 Oxygen Delivery Method 04/04/24 17:35 04/04/24 17:40 04/04/24 17:45 Temperature Temperature Source Pulse Rate 49 L 53 L 50 L Pulse Rate [Left Radial] Respiratory Rate 19 17 20 Blood Pressure 84/50 L 77/47 L 86/50 L Blood Pressure [Right Arm] Blood Pressure Mean 59 54 61 Blood Pressure Mean [Right Arm] Blood Pressure Position [Right Arm] 02 Sat by Pulse Oximetry 96 96 96 Oxygen Delivery Method 04/04/24 17:50 04/04/24 17:53 04/04/24 17:55 Temperature Temperature Source Pulse Rate 53 L 53 L 53 L Pulse Rate [Left Radial] Respiratory Rate 21 21 21 Blood Pressure 82/51 L 104/67 L 97/64 L Blood Pressure [Right Arm] Blood Pressure Mean 57 79 72 Blood Pressure Mean [Right Arm] Blood Pressure Position [Right Arm] 02 Sat by Pulse Oximetry 97 97 97 Oxygen Delivery Method 04/04/24 18:00 04/04/24 18:06 04/04/24 18:10 Temperature Temperature Source Pulse Rate 59 L 57 L 60 Pulse Rate [Left Radial] Respiratory Rate 21 20 20 Blood Pressure 104/65 L 119/68 118/70 Blood Pressure [Right Arm] Blood Pressure Mean 72 74 78 Blood Pressure Mean [Right Arm] Blood Pressure Position [Right Arm] 02 Sat by Pulse Oximetry 98 97 100 Oxygen Delivery Method 04/04/24 18:15 04/04/24 18:28 Temperature 98.5 F Temperature Source Pulse Rate 60 57 L Pulse Rate [Left Radial] Respiratory Rate 20 20 Blood Pressure 118/75 115/68 Blood Pressure [Right Arm] Blood Pressure Mean 82 Blood Pressure Mean [Right Arm] Blood Pressure Position [Right Arm] 02 Sat by Pulse Oximetry 100 Oxygen Delivery Method Room Air Lab Data Lab results reviewed: Yes I reviewed the patient's lab results. Lab Results 04/04/24 12:53: WBC 6.6, RBC 4.57 L, Hgb 13.7 L, Hct 39.4 L, MCV 86.2, MCH 30.0, MCHC 34.8, RDW 12.3, Plt Count 162, MPV 9.0, Neut % (Auto) 70.0, Lymph % (Auto) 19.5, Granite % (Auto) 9.4 H, Eos % (Auto) 0.2, Baso % (Auto) 0.6, Neut # (Auto) 4.6, Lymph # (Auto) 1.3, Granite # (Auto) 0.6, Eos # (Auto) 0.0, Baso # (Auto) 0.0, ESR 21 H, Sodium 137, Potassium 2.7 L*, Chloride 100, Carbon Dioxide 26, Anion Gap 13.7, BUN 16, Creatinine 0.80, Estimated Creat Clear 110, Estimated GFR 99, Est GFR ( Amer) 120, Glucose 108 H, Calcium 9.1, Total Bilirubin 0.7, AST 41, ALT 32, Alkaline Phosphatase 60, C-Reactive Protein 39.6 H, Total Protein 6.6, Albumin 3.7, Globulin 2.9, Albumin/Globulin Ratio 1.3, Procalcitonin 0.063 04/04/24 13:06: VBG pH 7.42 H, VBG pCO2 39.1, VBG pO2 68.4 H, VBG HCO3 24.8, VBG Total CO2 26.0, VBG O2 Saturation 93.7 H, VBG Base Excess 0.4, VBG Lactic Acid 2.8 H 04/04/24 12:53 04/04/24 12:53 Orders (Tests/Meds): ED MEDICATIONS Discontinued Medications Generic Name Dose Route Start Last Admin Trade Name Freq PRN Reason Stop Dose Admin Acetaminophen 1,000 mg 04/04/24 12:39 04/04/24 13:17 Acetaminophen 1,000mg/100ml Vial IV 04/04/24 12:40 1,000 mg ONCE ONE Administration Sodium Chloride 1,000 mls @ 999 mls/hr 04/04/24 12:39 04/04/24 13:17 Sod Chlor 0.9% 1000ml Bag IV 04/04/24 13:39 999 mls/hr .Q1H1M ONE Administration Clindamycin Phosphate 900 mg in 50 mls @ 100 mls/hr 04/04/24 12:43 04/04/24 14:05 Clindamycin 900mg/50ml D5w Premix IV 04/04/24 13:12 100 mls/hr ONCE ONE Administration Piperacillin Sod/Tazobactam 50 mls @ 100 mls/hr 04/04/24 12:43 04/04/24 13:39 Sod 3.375 gm/ Sodium Chloride IV 04/04/24 13:12 100 mls/hr ONCE ONE Administration Vancomycin HCl 2,500 mg/ 500 mls @ 250 mls/hr 04/04/24 13:00 04/04/24 15:06 Sodium Chloride IV 04/04/24 14:59 250 mls/hr ONCE ONE Administration Lactated Ringer's 2,330 mls @ 1,165 mls/hr 04/04/24 15:01 04/04/24 15:06 Lactated Ringer's 1000 Ml Bag 30 ml/kg infuse over 2 hr (2330 ml) 04/04/24 17:00 1,165 mls/hr IV Administration .Q2H ONE Potassium Chloride/Water 100 mls @ 50 mls/hr 04/04/24 15:11 Potassium Chloride 20meq/100ml Ivpb IV 04/04/24 21:10 Q2H TOBIN Fluconazole 200 mg in 100 mls @ 200 mls/hr 04/04/24 16:05 04/04/24 16:13 Diflucan 200mg/100ml Ivpb IV 04/04/24 16:34 200 mls/hr ONCE ONE Administration Norepinephrine/Dextrose 8 mg in 250 mls @ 3.75 mls/hr 04/04/24 17:34 04/04/24 17:46 Levophed 8mg/250ml-D5w Premix IV 05/04/24 17:33 8 mcg/min .Q24H TOBIN 15 mls/hr Administration Protocol 2 MCG/MIN Iopamidol 75 ml 04/04/24 14:13 04/04/24 14:14 Iopamidol-370 (76%);100ml Bottle IV 04/04/24 14:14 75 ml ONCE ONE Administration Ketorolac Tromethamine 15 mg 04/04/24 12:39 04/04/24 13:16 Ketorolac 30mg/Ml Vial IV 04/04/24 12:40 15 mg ONCE ONE Administration Miscellaneous 1 each 04/04/24 12:45 04/04/24 13:26 Vancomycin Consult Request NOTAPPLIC 05/04/24 12:44 1 each CONSULT PHARMACY TOBIN Administration Oxycodone HCl 5 mg 04/04/24 12:39 04/04/24 13:16 Oxycodone 5mg Immediate Release Tablet PO 04/04/24 12:40 5 mg ONCE ONE Administration Potassium Chloride 60 meq 04/04/24 15:10 04/04/24 16:00 Potassium Chloride 20meq Tab PO 04/04/24 15:11 60 meq ONCE ONE Administration Sodium Chloride 10 ml 04/04/24 14:13 04/04/24 14:14 Sodium Chloride 0.9% 10ml Syr (Rad Only) IV 04/04/24 14:14 10 ml ONCE ONE Administration ORDERS Category Date Time Status CT abdomen pelvis w con Stat Cat Scan 04/04/24 12:39 Completed CBC w/Auto Diff [Complete Blood Count Auto Diff] Stat Lab 04/04/24 12:53 Completed CMP [Comprehensive Metabolic Panel] Stat Lab 04/04/24 12:53 Completed CRP [C-Reactive Protein] Stat Lab 04/04/24 12:53 Completed ESR [Erythrocyte Sedimentation Rate] Stat Lab 04/04/24 12:53 Completed Procalcitonin Stat Lab 04/04/24 12:53 Completed Blood Culture Stat Micro 04/04/24 13:45 Received Wound Culture and Gram Stain Stat Micro 04/04/24 12:30 Results Venous Blood Gas Routine RT 04/04/24 13:06 Completed Tissue Perfus/Sepsis Re-Eval Sepsis Re-Evaluation Performed: Yes Date Performed: 04/04/24 Time Performed: 15:17 Medical Decision Narrative: In summary patient is a 58-year-old male who presents to the emergency department for evaluation of panniculitis and balanitis. Patient is initially normotensive at 122/68 with a heart rate of 69 respiratory rate is 20 satting at 96% on room air upon arrival, with a temperature of 98.3. Physical exam is remarkable for induration and erythema surrounding the suprapubic pannus and dense induration of the skin surrounding whole that which the penis normally is delivered to urinate there is a thick smelly greenish discharge in the recess. I am able to visualize the glans but I am not able to get visualize the urethral opening. Attempts to deliver the penis myself are fruitless as I cannot traverse the distance due to the induration and cellulitis. There is erythema down into the scrotum again also slightly indurated I do not feel any subcutaneous crepitus currently.. Differential diagnosis includes cellulitis versus Jeremy's gangrene versus necrotizing soft tissue infection etc. Initial workup will be conducted with hematologic labs blood cultures CT scan of the abdomen pelvis with contrast wound culture and urine culture. Initial interventions include crystalloid bolus Toradol Tylenol vancomycin clindamycin and Zosyn. Initial workup reviewed by me shows that his white count of 6.6 with an absolute neutrophil count of 4.6, sed rate 21, VBG shows a pH of 7.42 with a VBG lactic acid of 2.8, CMP significant for potassium of 2.7, and anion gap of 13 a CO2 of 26 glucose of 108, CRP is 39.6, and his procalcitonin is 0.063. Given the significant soft tissue infection had an interact discussion with hospital medicine here at [facility] regarding patient management and they felt that due to the possibility of needing involving urological evaluation which we do not have here that he should be transferred to a higher level of care with urology. Thus have contacted the [facility] transfer [facility] initially and await response at 1515. [facility] felt he needed a higher level of care thus I contacted the [facility]. I have had an interactive discussion with the [facility] transfer about patient management center and he has been accepted to [facility] in care of Dr. Abarca. Upon reassessment at 1730 patient did not respond to a sepsis bolus and while I suspect that he has too much beta-blockade his pressures remain in the 70s and 80s with a MAP in the 50s. Thus I have started him on Levophed. Patient will be going by air to the [facility] <Jelani Hammond MD - Last Filed: 04/05/24 07:38> Vital Signs: 04/04/24 12:00 04/04/24 13:45 04/04/24 13:50 Temperature 98.3 F Temperature Source Oral Pulse Rate 62 56 L Pulse Rate [Left Radial] 69 Respiratory Rate 20 Blood Pressure 92/50 L 91/44 L Blood Pressure [Right Arm] 122/68 Blood Pressure Mean Blood Pressure Mean [Right Arm] 86 Blood Pressure Position [Right Arm] Sitting 02 Sat by Pulse Oximetry 96 94 L 94 L Oxygen Delivery Method Room Air Room Air Room Air 04/04/24 13:55 04/04/24 14:00 04/04/24 14:05 Temperature Temperature Source Pulse Rate 57 L 61 47 L Pulse Rate [Left Radial] Respiratory Rate Blood Pressure 88/53 L 96/50 L 85/52 L Blood Pressure [Right Arm] Blood Pressure Mean Blood Pressure Mean [Right Arm] Blood Pressure Position [Right Arm] 02 Sat by Pulse Oximetry 90 L 94 L 93 L Oxygen Delivery Method Room Air Room Air Room Air 04/04/24 14:20 04/04/24 14:26 04/04/24 14:31 Temperature Temperature Source Pulse Rate 58 L 58 L 60 Pulse Rate [Left Radial] Respiratory Rate Blood Pressure 97/53 L 91/47 L 85/36 L Blood Pressure [Right Arm] Blood Pressure Mean 69 61 Blood Pressure Mean [Right Arm] Blood Pressure Position [Right Arm] 02 Sat by Pulse Oximetry 93 L 93 L 93 L Oxygen Delivery Method 04/04/24 14:35 04/04/24 14:40 04/04/24 14:45 Temperature Temperature Source Pulse Rate 63 48 L 51 L Pulse Rate [Left Radial] Respiratory Rate Blood Pressure 87/48 L 82/45 L 83/43 L Blood Pressure [Right Arm] Blood Pressure Mean Blood Pressure Mean [Right Arm] Blood Pressure Position [Right Arm] 02 Sat by Pulse Oximetry 92 L 96 90 L Oxygen Delivery Method 04/04/24 14:50 04/04/24 14:55 04/04/24 15:00 Temperature Temperature Source Pulse Rate 49 L 57 L 55 L Pulse Rate [Left Radial] Respiratory Rate Blood Pressure 82/41 L 72/44 L 84/44 L Blood Pressure [Right Arm] Blood Pressure Mean Blood Pressure Mean [Right Arm] Blood Pressure Position [Right Arm] 02 Sat by Pulse Oximetry 92 L 94 L 92 L Oxygen Delivery Method 04/04/24 15:02 04/04/24 15:05 04/04/24 15:10 Temperature Temperature Source Pulse Rate 55 L 55 L 54 L Pulse Rate [Left Radial] Respiratory Rate 15 21 Blood Pressure 79/47 L 89/55 L 94/56 L Blood Pressure [Right Arm] Blood Pressure Mean Blood Pressure Mean [Right Arm] Blood Pressure Position [Right Arm] 02 Sat by Pulse Oximetry 94 L 94 L 94 L Oxygen Delivery Method 04/04/24 15:16 04/04/24 15:20 04/04/24 15:25 Temperature Temperature Source Pulse Rate 54 L 53 L 50 L Pulse Rate [Left Radial] Respiratory Rate 17 21 21 Blood Pressure 87/57 L 79/47 L 87/48 L Blood Pressure [Right Arm] Blood Pressure Mean Blood Pressure Mean [Right Arm] Blood Pressure Position [Right Arm] 02 Sat by Pulse Oximetry 95 95 96 Oxygen Delivery Method Room Air Room Air Room Air 04/04/24 15:30 04/04/24 15:35 04/04/24 15:40 Temperature Temperature Source Pulse Rate 52 L 56 L 57 L Pulse Rate [Left Radial] Respiratory Rate 17 20 24 Blood Pressure 88/42 L 86/49 L 84/45 L Blood Pressure [Right Arm] Blood Pressure Mean Blood Pressure Mean [Right Arm] Blood Pressure Position [Right Arm] 02 Sat by Pulse Oximetry 94 L 94 L 98 Oxygen Delivery Method Room Air Room Air Room Air 04/04/24 15:45 04/04/24 15:50 04/04/24 15:55 Temperature Temperature Source Pulse Rate 48 L 54 L 52 L Pulse Rate [Left Radial] Respiratory Rate 21 21 22 Blood Pressure 92/54 L 93/59 L 98/60 L Blood Pressure [Right Arm] Blood Pressure Mean Blood Pressure Mean [Right Arm] Blood Pressure Position [Right Arm] 02 Sat by Pulse Oximetry 95 96 97 Oxygen Delivery Method Room Air Room Air Room Air 04/04/24 16:00 04/04/24 16:05 04/04/24 16:10 Temperature Temperature Source Pulse Rate 47 L 52 L 54 L Pulse Rate [Left Radial] Respiratory Rate 20 21 18 Blood Pressure 86/49 L 88/53 L 82/53 L Blood Pressure [Right Arm] Blood Pressure Mean Blood Pressure Mean [Right Arm] Blood Pressure Position [Right Arm] 02 Sat by Pulse Oximetry 97 97 97 Oxygen Delivery Method Room Air Room Air Room Air 04/04/24 16:15 04/04/24 16:20 04/04/24 16:25 Temperature Temperature Source Pulse Rate 51 L 55 L 49 L Pulse Rate [Left Radial] Respiratory Rate 20 22 21 Blood Pressure 88/55 L 92/48 L 83/51 L Blood Pressure [Right Arm] Blood Pressure Mean 57 Blood Pressure Mean [Right Arm] Blood Pressure Position [Right Arm] 02 Sat by Pulse Oximetry 96 96 96 Oxygen Delivery Method Room Air Room Air 04/04/24 16:30 04/04/24 16:35 04/04/24 16:40 Temperature Temperature Source Pulse Rate 47 L 51 L 51 L Pulse Rate [Left Radial] Respiratory Rate 23 21 21 Blood Pressure 82/50 L 83/48 L 90/57 L Blood Pressure [Right Arm] Blood Pressure Mean 58 56 66 Blood Pressure Mean [Right Arm] Blood Pressure Position [Right Arm] 02 Sat by Pulse Oximetry 95 94 L 94 L Oxygen Delivery Method 04/04/24 16:45 04/04/24 16:50 04/04/24 16:55 Temperature Temperature Source Pulse Rate 51 L Pulse Rate [Left Radial] Respiratory Rate 21 Blood Pressure 96/62 L 91/59 L 91/59 L Blood Pressure [Right Arm] Blood Pressure Mean 70 69 67 Blood Pressure Mean [Right Arm] Blood Pressure Position [Right Arm] 02 Sat by Pulse Oximetry 94 L Oxygen Delivery Method 04/04/24 17:00 04/04/24 17:10 04/04/24 17:15 Temperature Temperature Source Pulse Rate 48 L 54 L 54 L Pulse Rate [Left Radial] Respiratory Rate 24 21 17 Blood Pressure 79/47 L 81/53 L 89/55 L Blood Pressure [Right Arm] Blood Pressure Mean 57 61 63 Blood Pressure Mean [Right Arm] Blood Pressure Position [Right Arm] 02 Sat by Pulse Oximetry 95 95 96 Oxygen Delivery Method 04/04/24 17:20 04/04/24 17:25 04/04/24 17:30 Temperature Temperature Source Pulse Rate 50 L 49 L 49 L Pulse Rate [Left Radial] Respiratory Rate 19 19 19 Blood Pressure 88/56 L 81/55 L 84/49 L Blood Pressure [Right Arm] Blood Pressure Mean 63 61 55 Blood Pressure Mean [Right Arm] Blood Pressure Position [Right Arm] 02 Sat by Pulse Oximetry 95 98 96 Oxygen Delivery Method 04/04/24 17:35 04/04/24 17:40 04/04/24 17:45 Temperature Temperature Source Pulse Rate 49 L 53 L 50 L Pulse Rate [Left Radial] Respiratory Rate 19 17 20 Blood Pressure 84/50 L 77/47 L 86/50 L Blood Pressure [Right Arm] Blood Pressure Mean 59 54 61 Blood Pressure Mean [Right Arm] Blood Pressure Position [Right Arm] 02 Sat by Pulse Oximetry 96 96 96 Oxygen Delivery Method 04/04/24 17:50 04/04/24 17:53 04/04/24 17:55 Temperature Temperature Source Pulse Rate 53 L 53 L 53 L Pulse Rate [Left Radial] Respiratory Rate 21 21 21 Blood Pressure 82/51 L 104/67 L 97/64 L Blood Pressure [Right Arm] Blood Pressure Mean 57 79 72 Blood Pressure Mean [Right Arm] Blood Pressure Position [Right Arm] 02 Sat by Pulse Oximetry 97 97 97 Oxygen Delivery Method 04/04/24 18:00 04/04/24 18:06 04/04/24 18:10 Temperature Temperature Source Pulse Rate 59 L 57 L 60 Pulse Rate [Left Radial] Respiratory Rate 21 20 20 Blood Pressure 104/65 L 119/68 118/70 Blood Pressure [Right Arm] Blood Pressure Mean 72 74 78 Blood Pressure Mean [Right Arm] Blood Pressure Position [Right Arm] 02 Sat by Pulse Oximetry 98 97 100 Oxygen Delivery Method 04/04/24 18:15 04/04/24 18:28 Temperature 98.5 F Temperature Source Pulse Rate 60 57 L Pulse Rate [Left Radial] Respiratory Rate 20 20 Blood Pressure 118/75 115/68 Blood Pressure [Right Arm] Blood Pressure Mean 82 Blood Pressure Mean [Right Arm] Blood Pressure Position [Right Arm] 02 Sat by Pulse Oximetry 100 Oxygen Delivery Method Room Air Lab Data Lab Results 04/04/24 12:53: WBC 6.6, RBC 4.57 L, Hgb 13.7 L, Hct 39.4 L, MCV 86.2, MCH 30.0, MCHC 34.8, RDW 12.3, Plt Count 162, MPV 9.0, Neut % (Auto) 70.0, Lymph % (Auto) 19.5, Granite % (Auto) 9.4 H, Eos % (Auto) 0.2, Baso % (Auto) 0.6, Neut # (Auto) 4.6, Lymph # (Auto) 1.3, Granite # (Auto) 0.6, Eos # (Auto) 0.0, Baso # (Auto) 0.0, ESR 21 H, Sodium 137, Potassium 2.7 L*, Chloride 100, Carbon Dioxide 26, Anion Gap 13.7, BUN 16, Creatinine 0.80, Estimated Creat Clear 110, Estimated GFR 99, Est GFR ( Amer) 120, Glucose 108 H, Calcium 9.1, Total Bilirubin 0.7, AST 41, ALT 32, Alkaline Phosphatase 60, C-Reactive Protein 39.6 H, Total Protein 6.6, Albumin 3.7, Globulin 2.9, Albumin/Globulin Ratio 1.3, Procalcitonin 0.063 04/04/24 13:06: VBG pH 7.42 H, VBG pCO2 39.1, VBG pO2 68.4 H, VBG HCO3 24.8, VBG Total CO2 26.0, VBG O2 Saturation 93.7 H, VBG Base Excess 0.4, VBG Lactic Acid 2.8 H Orders (Tests/Meds): ED MEDICATIONS Discontinued Medications Generic Name Dose Route Start Last Admin Trade Name Freq PRN Reason Stop Dose Admin Acetaminophen 1,000 mg 04/04/24 12:39 04/04/24 13:17 Acetaminophen 1,000mg/100ml Vial IV 04/04/24 12:40 1,000 mg ONCE ONE Administration Sodium Chloride 1,000 mls @ 999 mls/hr 04/04/24 12:39 04/04/24 13:17 Sod Chlor 0.9% 1000ml Bag IV 04/04/24 13:39 999 mls/hr .Q1H1M ONE Administration Clindamycin Phosphate 900 mg in 50 mls @ 100 mls/hr 04/04/24 12:43 04/04/24 14:05 Clindamycin 900mg/50ml D5w Premix IV 04/04/24 13:12 100 mls/hr ONCE ONE Administration Piperacillin Sod/Tazobactam 50 mls @ 100 mls/hr 04/04/24 12:43 04/04/24 13:39 Sod 3.375 gm/ Sodium Chloride IV 04/04/24 13:12 100 mls/hr ONCE ONE Administration Vancomycin HCl 2,500 mg/ 500 mls @ 250 mls/hr 04/04/24 13:00 04/04/24 15:06 Sodium Chloride IV 04/04/24 14:59 250 mls/hr ONCE ONE Administration Lactated Ringer's 2,330 mls @ 1,165 mls/hr 04/04/24 15:01 04/04/24 15:06 Lactated Ringer's 1000 Ml Bag 30 ml/kg infuse over 2 hr (2330 ml) 04/04/24 17:00 1,165 mls/hr IV Administration .Q2H ONE Potassium Chloride/Water 100 mls @ 50 mls/hr 04/04/24 15:11 Potassium Chloride 20meq/100ml Ivpb IV 04/04/24 21:10 Q2H TOBIN Fluconazole 200 mg in 100 mls @ 200 mls/hr 04/04/24 16:05 04/04/24 16:13 Diflucan 200mg/100ml Ivpb IV 04/04/24 16:34 200 mls/hr ONCE ONE Administration Norepinephrine/Dextrose 8 mg in 250 mls @ 3.75 mls/hr 04/04/24 17:34 04/04/24 17:46 Levophed 8mg/250ml-D5w Premix IV 05/04/24 17:33 8 mcg/min .Q24H TOBIN 15 mls/hr Administration Protocol 2 MCG/MIN Iopamidol 75 ml 04/04/24 14:13 04/04/24 14:14 Iopamidol-370 (76%);100ml Bottle IV 04/04/24 14:14 75 ml ONCE ONE Administration Ketorolac Tromethamine 15 mg 04/04/24 12:39 04/04/24 13:16 Ketorolac 30mg/Ml Vial IV 04/04/24 12:40 15 mg ONCE ONE Administration Miscellaneous 1 each 04/04/24 12:45 04/04/24 13:26 Vancomycin Consult Request NOTAPPLIC 05/04/24 12:44 1 each CONSULT PHARMACY TOBIN Administration Oxycodone HCl 5 mg 04/04/24 12:39 04/04/24 13:16 Oxycodone 5mg Immediate Release Tablet PO 04/04/24 12:40 5 mg ONCE ONE Administration Potassium Chloride 60 meq 04/04/24 15:10 04/04/24 16:00 Potassium Chloride 20meq Tab PO 04/04/24 15:11 60 meq ONCE ONE Administration Sodium Chloride 10 ml 04/04/24 14:13 04/04/24 14:14 Sodium Chloride 0.9% 10ml Syr (Rad Only) IV 04/04/24 14:14 10 ml ONCE ONE Administration ORDERS Category Date Time Status CT abdomen pelvis w con Stat Cat Scan 04/04/24 12:39 Completed CBC w/Auto Diff [Complete Blood Count Auto Diff] Stat Lab 04/04/24 12:53 Completed CMP [Comprehensive Metabolic Panel] Stat Lab 04/04/24 12:53 Completed CRP [C-Reactive Protein] Stat Lab 04/04/24 12:53 Completed ESR [Erythrocyte Sedimentation Rate] Stat Lab 04/04/24 12:53 Completed Procalcitonin Stat Lab 04/04/24 12:53 Completed Blood Culture Stat Micro 04/04/24 13:45 Received Wound Culture and Gram Stain Stat Micro 04/04/24 12:30 Results Venous Blood Gas Routine RT 04/04/24 13:06 Completed Medical Decision Narrative: In summary patient is a 58-year-old male who presents to the emergency department for evaluation of panniculitis and balanitis. Patient is initially normotensive at 122/68 with a heart rate of 69 respiratory rate is 20 satting at 96% on room air upon arrival, with a temperature of 98.3. Physical exam is remarkable for induration and erythema surrounding the suprapubic pannus and dense induration of the skin surrounding whole that which the penis normally is delivered to urinate there is a thick smelly greenish discharge in the recess. I am able to visualize the glans but I am not able to get visualize the urethral opening. Attempts to deliver the penis myself are fruitless as I cannot traverse the distance due to the induration and cellulitis. There is erythema down into the scrotum again also slightly indurated I do not feel any subcutaneous crepitus currently.. Differential diagnosis includes cellulitis versus Jeremy's gangrene versus necrotizing soft tissue infection etc. Initial workup will be conducted with hematologic labs blood cultures CT scan of the abdomen pelvis with contrast wound culture and urine culture. Initial interventions include crystalloid bolus Toradol Tylenol vancomycin clindamycin and Zosyn. Initial workup reviewed by me shows that his white count of 6.6 with an absolute neutrophil count of 4.6, sed rate 21, VBG shows a pH of 7.42 with a VBG lactic acid of 2.8, CMP significant for potassium of 2.7, and anion gap of 13 a CO2 of 26 glucose of 108, CRP is 39.6, and his procalcitonin is 0.063. Given the significant soft tissue infection had an interact discussion with hospital medicine here at [facility] regarding patient management and they felt that due to the possibility of needing involving urological evaluation which we do not have here that he should be transferred to a higher level of care with urology. Thus have contacted the [facility] transfer [facility] initially and await response at [phone]. [facility] felt he needed a higher level of care thus I contacted the [facility]. I have had an interactive discussion with the [facility] transfer about patient management center and he has been accepted to [facility] in care of Dr. Abarca. Upon reassessment at [id number] patient did not respond to a sepsis bolus and while I suspect that he has too much beta-blockade his pressures remain in the 70s and 80s with a MAP in the 50s. Thus I have started him on Levophed. Patient will be going by air to the [facility] I was consulted by the MARIUSZ, and we discussed the complexity of the problems being addressed. I approved the treatment and management plan for this patient's care in the Emergency Department, thus performing a substantive portion of the medical decision making. I also independently examined and interviewed patient. Initially high concern for cellulitis versus necrotizing infection. Jelani Hammond MD Critical Care <LOLA Keene - Last Filed: 04/04/24 18:16> Critical Care Time Critical Care Time: Yes Attestation: On 04/04/24, the high probability of a clinically significant, sudden or life threatening deterioration of the following system; cardiovascular; urologic; required my full and direct attention, intervention and personal management. The time I documented below is in addition to time spent performing reported procedures but includes the following listed in this critical care notation. Total Time Total Critical Care Time: 30 <Jelani Hammond MD - Last Filed: 04/05/24 07:38> Total Time Total Critical Care Time: 60
--- NOTE | 2024-04-04 12:39 | CT_ITS ---
FINAL REPORT TECHNIQUE: After the administration of oral and intravenous contrast, axial images were obtained through the abdomen and pelvis by computed tomography. The study was performed with techniques to keep radiation dose as low as reasonably achievable, (ALARA). Individual dose reduction techniques using automated exposure control or adjustment of mA and/or kV according to the patient's size were employed. CLINICAL HISTORY: Suprapubic, scrotal and peripenile cellulitis FINDINGS: Abdomen: There is scarring at the lung bases. There is mild fatty infiltration of the liver. The gallbladder is present. The spleen, pancreas, adrenals and kidneys appear unremarkable. The aorta is normal in caliber. There is no free fluid or adenopathy. Pelvis: There are small, scattered diverticula in the sigmoid colon. The appendix is not identified. The urinary bladder is unremarkable. There is no pelvic free fluid. There is extensive soft tissue edema involving the pannus of the inferior anterior pelvic wall. The penis appears to be retracted into the pannus with significant surrounding inflammation around the distal portion of the retracted penis. There is no abscess. No soft tissue emphysema is seen. There are moderately advanced changes of degenerative disc disease at L3-4, L4-5, and L5-S1. IMPRESSION: Extensive inflammation surrounding the penis probably related to acute cellulitis. Reviewed, Interpreted and Dictated by Bimal Davis MD Transcribed by Leyla Rhodes Authenticated and . [facility]
[2024-04-04 13:11] LABS: Lactate Venous 2.8 mmol/L (0.4-2.0); VBG Base Excess 0.4 mmol/L (-2.4-2.3); VBG HCO3 24.8 mmol/L (23-30); VBG Oxygen Saturation 93.7 % (50-70); VBG PCO2 39.1 mmol/L (35-51); VBG PH 7.42 mmol/L (7.31-7.41); VBG PO2 68.4 mmol/L (28-40)
[2024-04-04] MEDS: OXYCODONE 5MG IMMEDIATE RELEASE TABLET 5 MG PO (13:16)
[2024-04-04] MEDS: KETOROLAC 30MG/ML VIAL 15 MG IV (13:16)
[2024-04-04] MEDS: 0.9 % SODIUM CHLORIDE 1000ML 1,000 ML 999 ML IV (13:17)
[2024-04-04] MEDS: ACETAMINOPHEN 1,000MG/100ML VIAL 1000 MG IV (13:17)
[2024-04-04 13:20] LABS: Alanine Aminotransferase 32 U/L (12-78); Albumin Level 3.7 g/dl (3.5-5.0); Albumin/Globulin Ratio 1.3 (1.1-1.8); Alkaline Phosphatase 60 U/L (38-126); Anion Gap 13.7 mEq/L (5-15); Aspartate Amino Transferase 41 U/L (17-59); Bilirubin,Total 0.7 mg/dl (0.2-1.3); Blood Urea Nitrogen 16 mg/dl (9-20); Calcium 9.1 mg/dl (8.4-10.2); Carbon Dioxide 26 mmol/L (22.0-30.0); Chloride 100 mmol/L (98-107); Creatinine Clearance Estimated 110 mL/min (50-200); Estimated Glomerular Filt Rate 99 ml/min (>60); GFR (African American) 120 ML/MIN (>60); Globulin 2.9 g/dL (1.3-3.2); Glucose 108 mg/dl (74-100); Sodium 137 mmol/L (136-145); Total Protein,Serum 6.6 g/dl (6.3-8.2)
[2024-04-04 13:25] LABS: C-Reactive Protein 39.6 mg/L (0-4); Hemoglobin 13.7 g/dL (14.1-18.0); Red Blood Count 4.57 M/mm3 (4.60-6.20); White Blood Count 6.6 K/mm3 (4.8-10.8)
[2024-04-04 13:26] LABS: Basophils % 0.6 % (0.1-2.0); Eosinophils % 0.2 % (0.1-12.0); Hematocrit 39.4 % (42.0-52.0); Lymphocytes # 1.3 K/mm3 (0.7-4.5); Lymphocytes % 19.5 % (10-50); Mean Corpuscular HGB Conc 34.8 g/dL (31.8-35.4); Mean Corpuscular Volume 86.2 fl (80-94); Monocytes # 0.6 K/mm3 (0.1-1.0); Monocytes % 9.4 % (1.7-9.3); Neutrophils # 4.6 K/mm3 (1.8-7.8); Platelet Count 162 K/mm3 (142-424); Red Cell Distribution Width 12.3 % (11.5-17.5)
[2024-04-04] MEDS: VANCOMYCIN CONSULT REQUEST 1 EACH NOTAPPLIC (13:26)
[2024-04-04 13:39] LABS: Procalcitonin 0.063 ng/mL (0.0-2.0)
[2024-04-04] MEDS: PIPERCILLIN/TAZO 3.375 GM in 0.9 % SODIUM CHLORIDE 50 ML IV (13:39)
[2024-04-04 14:01] LABS: Potassium 2.7 mmoL/L (3.5-5.1)
[2024-04-04] MEDS: CLINDAMYCIN PHOSPHATE/D5W 900 MG/50 ML PIGGYBACK 100 MG IV (14:05)
[2024-04-04] MEDS: IOPAMIDOL-370 (76%);100ML BOTTLE 75 ML IV (14:14)
[2024-04-04] MEDS: SODIUM CHLORIDE 0.9% 10ML SYR (RAD ONLY) 10 ML IV (14:14)
[2024-04-04 14:20] LABS: Erythrocyte Sedimentation Rate 21 mm/hr (0-20)
--- NOTE | 2024-04-04 14:52 | PC.NURSE ---
[facility]. [facility] would reach out and contact them and call us back.
[2024-04-04] MEDS: LACTATED RINGERS 1000ML 2,330 ML 1165 ML IV (15:06)
[2024-04-04] MEDS: VANCOMYCIN HCL 2,500 MG in 0.9 % SODIUM CHLORIDE 500 ML 250 MG IV (15:06)
[2024-04-04] MEDS: POTASSIUM CHLORIDE 20MEQ TAB 60 MEQ PO (16:00)
[2024-04-04] MEDS: FLUCONAZOLE IN NACL,ISO-OSM 200 MG/100 ML PIGGYBACK IV (16:13)
--- NOTE | 2024-04-04 16:13 | PC.NURSE ---
Jamal Young called back and is speaking with LOLA Calhoun at this time.
--- NOTE | 2024-04-04 16:21 | PC.NURSE ---
Called [facility] to speak with them about pt being transferred. [facility] advised that they would call us back.
[2024-04-04 17:08] LABS: Reflex Lactic Add Lactic Reflex
[2024-04-04] MEDS: NOREPINEPHRINE BITARTRATE/D5W 8 MG/250 ML PLAST..BAG 15 MG IV (17:46)
--- NOTE | 2024-04-04 17:50 | PC.NURSE ---
[facility] ACCEPTED FLIGHT, 22 MINUTE ETA
--- NOTE | 2024-04-04 17:50 | PC.NURSE ---
Called [facility] to speak with them about transferring this pt to [facility]. [facility] would have a 22 min ETA and would call back as long as they could accept it
--- NOTE | 2024-04-04 18:00 | PC.NURSE ---
DON AT BEDSIDE TO UPDATE PT AND FAMILY
--- NOTE | 2024-04-04 18:22 | PC.NURSE ---
flight at bedside.
--- NOTE | 2024-04-07 08:24 | PC.NURSE ---
WOUND CULTURE FAXED TO [facility]. [phone]
== END 2024-04-04 18:37 | disposition short-term general hospital (02) ==
PROVIDERS: Physician Assistant; Emergency Provider Emergency Medicine; PCP Nurse Practitioner Family
DX: R57.9 Shock, unspecified (principal); E87.6 Hypokalemia; N48.1 Balanitis; M79.3 Panniculitis, unspecified; R30.9 Painful micturition, unspecified
CPT/HCPCS: 74177; 80053; 82803; 84145; 85025; 85651; 86140; 87040; 87070; 87077; 87186; 87205; 96361; 96365; 96366; 96367; 96374; 96375; 99291; J0131; J0736; J1885; J2543; J3370; J7030; J7120; Q9967